=== PATIENT | female | born 1970 | race Caucasian/White ===

== ENCOUNTER 2018-01-16 11:24 | Emergency (ER) | payer MEDICAID, OTHER ==
[~2018-01-16] VITALS: Ht 165.1 cm; Wt 113.4 kg
--- NOTE | 2018-01-16 11:36 | ED Integumentary General ---
General Chief Complaint: Skin/Wound Problems Stated Complaint: POISON RAYA/OAK ON BOTH ARMS Source: patient Exam Limitations: no limitations History of Present Illness Date Seen by Provider: Jan 16, 2018 Time Seen by Provider: 11:45 Initial Comments Patient is a 47-year-old female who presents to the emergency room with complaints of a rash on her arms and legs bilaterally. She reports that on she was working in her yard clearing out some overgrown brush and thinks she got into some poison raya. She was seen at an urgent care in [facility] and reports she was given a shot of "cortisone" on 01/08/18. She states that it has dried up a little bit but is not going away. Timing/Duration: week Location: face, hands, extremities Possible Cause: exposure to allergen Modifying Factors: improves with antihistamine Associated Symptoms: rash; No sore throat, No swelling/mass/lumps Allergies and Home Medications Allergies Coded Allergies: codeine (Verified Allergy, Unknown, 01/16/18) Home Medications No Active Prescriptions or Reported Meds Patient Home Medication List Home Medication List Reviewed: Yes Constitutional: see HPI; No chills, No diaphoresis, No fever EENTM: see HPI; No ear discharge, No hearing loss Respiratory: see HPI; No dyspnea on exertion, No short of breath, No wheezing Cardiovascular: see HPI; No chest pain, No edema Gastrointestinal: see HPI; No abdominal pain, No constipation Genitourinary: see HPI; No decreased output, No discharge Musculoskeletal: see HPI; No back pain, No gout, No joint pain Skin: see HPI; No lesions, No lumps; pruritus, rash Psychiatric/Neurological: See HPI; Denies Anxiety, Denies Depressed Endocrine: See HPI; Denies Excessive Sweating, Denies Flushing Hematologic/Lymphatic: See HPI; Denies Anemia, Denies Blood Clots All Other Systems Reviewed Negative Unless Noted: Yes Past Pcvrqzu-Ynhbbp-Qtowmj Hx Past Med/Social Hx: Reviewed Nursing Past Med/Soc Hx Patient Social History Recent Foreign Travel: No Contact w/Someone Who Travel: No Family Medical History Reviewed Nursing Family Hx Physical Exam Vital Signs Vital Signs - First Documented 01/16/18 11:45 Temp 98.1 Pulse 77 Resp 18 B/P (MAP) 171/116 (134) Pulse Ox 100 Capillary Refill : General Appearance: WD/WN, no apparent distress HEENT: normal ENT inspection, TMs normal, pharynx normal Neck: non-tender, full range of motion, supple Cardiovascular: regular rate, rhythm, no edema, no gallop, no JVD, no murmur Respiratory: chest non-tender, lungs clear, normal breath sounds, no respiratory distress, no accessory muscle use Gastrointestinal: non tender, soft, no organomegaly Back: normal inspection, no CVA tenderness, no vertebral tenderness Extremities: normal range of motion, non-tender, normal inspection, no pedal edema, no calf tenderness Neurologic/Psychiatric: alert, normal mood/affect, oriented x 3 Skin: warm/dry, rash (the patient has a pruritic rash on her arms bilaterally legs bilaterally and her left ear and cheek. She has scratched it to the point of bleeding and some areas. The bleeding is controlled. Several scabbed areas.) Skin Problem Location: upper extremities, lower extremities Skin Problem Character: erythema, rash, urticarial Lymphatic: no adenopathy Progress/Results/Core Measures Results/Orders My Orders Orders - VIVIANA RODRIGUES Triamcinolone Acetonide Im (Kenalog-40) (01/16/18 11:45) Diphenhydramine Injection (Benadryl Inje (01/16/18 11:45) Medications Given in ED Vital Signs/I&O 01/16/18 01/16/18 11:45 13:02 Temp 98.1 Pulse 77 51 Resp 18 16 B/P (MAP) 171/116 (134) 169/89 Pulse Ox 100 98 Departure Impression Primary Impression: Contact dermatitis due to poison raya Disposition: 01 HOME, SELF-CARE Condition: Stable/Unchanged Departure-Patient Inst. Decision time for Depature: 11:35 Referrals: NO,LOCAL PHYSICIAN (PCP) Primary Care Physician [facility] Patient Instructions: Contact Dermatitis (DC) Add. Discharge Instructions: You may use topical antihistamines, such as Benadryl cream to aid with itching, you may also take Benadryl as directed by the bottle to help with itching. Follow with a doctor within 1 week for recheck. I have provided the number to [facility] call today to schedule an appointment and get established with them. Return back to the emergency room as needed for any other concerns. All discharge instructions reviewed with patient and/or family. Voiced understanding. CH[facility]: [phone] Scripts No Active Prescriptions or Reported Meds VIVIANA RODRIGUES Jan 16, 2018 11:36
[2018-01-16] MEDS ORDERED: diphenhydrAMINE 50 MG/ML INJ (BENADRYL) IM ONE (11:45)
[2018-01-16] MEDS ORDERED: TRIAMCINOLONE ACET (KENALOG-40) 40 MG/ML 1 ML VIAL IM ONE (11:45)
[2018-01-16 13:02] VITALS: BP 169/89
== END 2018-01-16 13:02 | disposition home or self-care (01) ==
LOC: ER 11:27
DX: L25.5 Unspecified contact dermatitis due to plants, except food (principal); Z88.5 Allergy status to narcotic agent
CPT/HCPCS: 96372; 99284

== ENCOUNTER → 2019-07-16 | Outpatient (CLI) | payer SELFPAY ==
[2019-07-16 17:17] LABS: BASOPHILS % (AUTO) 1 % (0-10); EOSINOPHILS # (AUTO) 0.4 10^3/uL (0.0-0.3); EOSINOPHILS % (AUTO) 6 % (0-10); HEMATOCRIT 41 % (35-52); HEMOGLOBIN 13.4 G/DL (11.5-16.0); LYMPHOCYTES # (AUTO) 1.2 X 10^3 (1.0-4.0); LYMPHOCYTES % (AUTO) 20 % (12-44); MEAN CORPUSCULAR HEMOGLOBIN 31 PG (25-34); MEAN CORPUSCULAR HGB CONC 33 G/DL (32-36); MEAN CORPUSCULAR VOLUME 93 FL (80-99); MEAN PLATELET VOLUME 10.9 FL (7.4-10.4); MONOCYTES # (AUTO) 0.4 X 10^3 (0.0-1.0); MONOCYTES % (AUTO) 7 % (0-12); NEUTROPHILS # (AUTO) 3.7 X 10^3 (1.8-7.8); NEUTROPHILS % (AUTO) 66 % (42-75); PLATELET COUNT 248 10^3/uL (130-400); RED CELL DISTRIBUTION WIDTH 13.4 % (10.0-14.5); WHITE BLOOD COUNT 5.7 10^3/uL (4.3-11.0)
[2019-07-16 17:32] LABS: ALANINE AMINOTRANSFERASE 14 U/L (0-55); ALBUMIN 4.2 GM/DL (3.2-4.5); ALKALINE PHOSPHATASE 63 U/L (40-136); BILIRUBIN,TOTAL 0.4 MG/DL (0.1-1.0); BUN/CREATININE RATIO 22; CALCIUM 9.3 MG/DL (8.5-10.1); CARBON DIOXIDE 25 MMOL/L (21-32); CHLORIDE 106 MMOL/L (98-107); CREATINE KINASE 125 U/L (29-168); CREATININE SERUM 0.69 MG/DL (0.60-1.30); GFR ESTIMATED > 60; GLUCOSE 100 MG/DL (70-105); POTASSIUM 3.9 MMOL/L (3.6-5.0); SODIUM 140 MMOL/L (135-145)
== END ==
LOC: LAB 16:51
DX: R07.89 Other chest pain (principal)
CPT/HCPCS: 36415; 80053; 82550; 83880; 84484; 85025

== ENCOUNTER → 2019-11-18 | Outpatient (CLI) | payer SELFPAY | LOC: CARD 13:05 | PROVIDERS: ATTEND Internal Medicine Cardiovascular Disease | DX: R07.89 Other chest pain (principal); I10 Essential (primary) hypertension; F41.9 Anxiety disorder, unspecified; E66.01 Morbid (severe) obesity due to excess calories | CPT/HCPCS: 93306 ==

== ENCOUNTER → 2019-11-24 | Outpatient (CLI) | payer SELFPAY ==
[~2019-11-24] VITALS: Ht 162 cm; Wt 135.0 kg
[~2019-11-24] MED LIST: CATHETER FLUSH 10 ML SYR IV PRN; REGADENOSON 0.4 MG/5 ML SYR (LEXISCAN) IV ONE
[2019-11-24 09:46] VITALS: BP 202/114
--- NOTE | 2019-11-24 19:14 | STRESS TEST ---
DATE OF SERVICE: 11/24/2019 LEXISCAN MYOVIEW STRESS TEST REPORT REFERRING PHYSICIAN: Dr. Erin Hammer. In summary, the patient was injected with 10.4 mCi of technetium-99 Myoview and the resting images were obtained. Then, the patient received 0.4 mg of Lexiscan followed by 30.0 mCi of technetium-99 Myoview. Throughout the test, there were no EKG changes. The resting and stress images were reviewed and compared in the short axis, horizontal long axis, and vertical long axis views. Review of the images showed reversible ischemia involving the whole anterior wall and anterolateral wall. SSS is 18, SDS 14. Transient ischemic dilatation with TID value 1.34. On the gated images, the left ventricle appeared to be normal size with normal contractility. Calculated ejection fraction 67%. CONCLUSION: 1. The patient tolerated Lexiscan well. 2. Reversible ischemia involving the whole anterior wall and anterolateral wall. 3. Transient ischemic dilatation with TID value 1.34. 4. Normal left ventricular size with normal contractility. Calculated ejection fraction 67%. Job ID: [id number] DocumentID: [id number] Dictated Date: 11/24/2019 16:02:08 Physician Relations Specialist Date: 11/24/2019 19:14:12 Dictated By: MAHSA HUNTER MD
== END ==
LOC: CARD 07:50
PROVIDERS: ATTEND Internal Medicine Cardiovascular Disease
DX: R07.89 Other chest pain (principal); E66.01 Morbid (severe) obesity due to excess calories; I10 Essential (primary) hypertension; F41.9 Anxiety disorder, unspecified
CPT/HCPCS: 78452; 93017

== ENCOUNTER 2019-12-01 07:44 | Day surgery (SDC) | payer SELFPAY ==
[2019-12-01] VITALS (9 sets, daily range): BP systolic 119–156; BP diastolic 66–93
[~2019-12-01] VITALS: Ht 162 cm; Wt 138.0 kg
[~2019-12-01 07:44] MED LIST changes: -CATHETER FLUSH 10 ML SYR IV PRN; +HEParin (CATH LAB) 2,000 ML IV ONE; +LIDOCAINE 1% INJ 20 ML 20 ML VIAL ONE; +NS IV 1000 ML 1,000 ML ONE; -REGADENOSON 0.4 MG/5 ML SYR (LEXISCAN) IV ONE
[2019-12-01] MEDS ORDERED: NS IV 1000 ML 1,000 ML IV SCH ×2 (07:49→12:11)
--- OUTSIDE RECORDS SUMMARY | 2019-12-01 07:49 | XMS REPORT | Continuity of Care Document ---
Author Organization Unknown Address Unknown Phone Unavailable Allergies Active Description Code Type Severity Reaction Onset Reported/Identified Relationship to Patient Clinical Status Yes CODEINE SULFATE S EVERE GI PROBLEMS - VOMITI Yes CODEINE SULFATE S EVERE SEVERE Yes codeine [id number] Drug Allergy Unknown N/A 01/16/2018 Yes No Known Drug Allergies [id number] Drug Allergy Unknown N/A 01/16/2018 Medications There is no data. Problems Date Dx Coded Attending Type Code Diagnosis Diagnosed By 04/09/2017 Sharon Tejada 296.20 MAJOR DEPRESSIVE DISORDER, SINGLE EPISODE, UNSPECIFIED DEGREE 04/09/2017 Sharon Tejada 300.09 OTHER ANXIETY STATES 04/09/2017 Sharon Tejada F32.9 MAJOR DEPRESSIVE DISORDER, SINGLE EPISODE, UNSPECIFIED 04/09/2017 Sharon Tejada F41.8 OTHER SPECIFIED ANXIETY DISORDERS 01/16/2018 BERNOT, VIVIANA Ot L25.5 UNSPECIFIED CONTACT DERMATITIS DUE TO PL 01/16/2018 BERNOT, VIVIANA Ot R21 RASH AND OTHER NONSPECIFIC SKIN ERUPTION 01/16/2018 BERNOT, VIVIANA Ot Z88.5 ALLERGY STATUS TO NARCOTIC AGENT STATUS 01/19/2018 BERNOT, VIVIANA Ot L25.5 UNSPECIFIED CONTACT DERMATITIS DUE TO PL 01/19/2018 BERNOT, VIVIANA Ot R21 RASH AND OTHER NONSPECIFIC SKIN ERUPTION 01/19/2018 BERNOT, VIVIANA Ot Z88.5 ALLERGY STATUS TO NARCOTIC AGENT STATUS 07/20/2019 OTHER, UNLISTED Ot R07.89 OTHER CHEST PAIN 07/20/2019 OTHER, UNLISTED Ot R07.89 OTHER CHEST PAIN 07/20/2019 OTHER, UNLISTED Ot R07.89 OTHER CHEST PAIN 07/20/2019 OTHER, UNLISTED Ot R07.89 OTHER CHEST PAIN 07/20/2019 OTHER, UNLISTED Ot R07.89 OTHER CHEST PAIN 11/19/2019 DALE JOHNSON, MAHSA Leonard Ot E66. 01 MORBID (SEVERE) OBESITY DUE TO EXCESS CA 11/19/2019 MAHSA HUNTER MD Ot F41. 9 ANXIETY DISORDER, UNSPECIFIED 11/19/2019 MAHSA HUNTER MD Ot I10 ESSENTIAL (PRIMARY) HYPERTENSION 11/19/2019 DALE JOHNSON DERICNACHO Leonard Ot R07. 89 OTHER CHEST PAIN 11/19/2019 MAHSA HUNTER MD Ot E66. 01 MORBID (SEVERE) OBESITY DUE TO EXCESS CA 11/19/2019 MAHSA HUNTER MD Ot F41. 9 ANXIETY DISORDER, UNSPECIFIED 11/19/2019 MAHSA HUNTER MD J Ot I10 ESSENTIAL (PRIMARY) HYPERTENSION 11/19/2019 MAHSA HUNTER MD Ot R07. 89 OTHER CHEST PAIN 11/25/2019 MAHSA HUNTER MD Ot E66. 01 MORBID (SEVERE) OBESITY DUE TO EXCESS CA 11/25/2019 MAHSA HUNTER MD Ot F41. 9 ANXIETY DISORDER, UNSPECIFIED 11/25/2019 MAHSA HUNTER MD Ot I10 ESSENTIAL (PRIMARY) HYPERTENSION 11/25/2019 MAHSA HUNTER MD Ot R07. 89 OTHER CHEST PAIN Procedures There is no data. Results Test Result Range CULTURE, URINE - 02/27/19 11:31 CULTURE, URINE, ROUTINE SEE NOTE NRG Complete blood count (CBC) with automate d white blood cell (WBC) differential - 07/16/19 17:03 Blood leukocytes automated count (number/volume) 5.7 10*3/uL 4.3-11.0 Blood erythrocytes automated count (number/volume) 4.40 10*6/uL 4.35-5.85 Venous blood hemoglobin measurement (mass/volume) 13.4 g/dL 11.5-16.0 Blood hematocrit (volume fraction) 41 % 35-52 Automated erythrocyte mean corpuscular volume 93 [ foz_us] 80-99 Automated erythrocyte mean corpuscular h emoglobin (mass per erythrocyte) 31 pg 25-34 Automated erythrocyte mean corpuscular h emoglobin concentration measurement (mass/volume) 33 g/dL 32-36 Automated erythrocyte distribution width ratio 13. 4 % 10.0- 14.5 Automated blood platelet count (count/volume) 248 10*3/uL 130-400 Automated blood platelet mean volume measurement 10.9 [foz_us] 7.4-10.4 Automated blood neutrophils/100 leukocytes 66 % 42-75 Automated blood lymphocytes/100 leukocytes 20 % 12-44 Blood monocytes/100 leukocytes 7 % 0-12 Automated blood eosinophils/100 leukocytes 6 % 0-10 Automated blood basophils/100 leukocytes 1 % 0-10 Blood neutrophils automated count (number/volume) 3.7 10*3 1.8-7.8 Blood lymphocytes automated count (number/volume) 1.2 10*3 1.0-4.0 Blood monocytes automated count (number/volume) 0. 4 10*3 0.0-1.0 Automated eosinophil count 0.4 10*3/uL 0 .0-0.3 Automated blood basophil count (count/volume) 0.0 10*3/uL 0.0-0.1 Comprehensive metabolic panel - 07/16/19 17:03 Serum or plasma sodium measurement (moles/volume) 140 mmol/L 135-145 Serum or plasma potassium measurement (moles/volume) 3.9 mmol/L 3.6-5.0 Serum or plasma chloride measurement (moles/volume) 106 mmol/L 98-107 Carbon dioxide 25 mmol/L 21-32 Serum or plasma anion gap determination (moles/volume) 9 mmol/L 5-14 Serum or plasma urea nitrogen measurement (mass/volume ) 15 mg/dL 7-18 Serum or plasma creatinine measurement (mass/volume) 0.69 mg/dL 0.60-1.30 Serum or plasma urea nitrogen/creatinine mass ratio 22 NRG Serum or plasma creatinine measurement w ith calculation of estimated glomerular filtration rate > NRG Serum or plasma glucose measurement (mass/volume) 100 mg/dL 70-105 Serum or plasma calcium measurement (mass/volume) 9.3 mg/dL 8.5-10.1 Serum or plasma total bilirubin measurement (mass/volu me) 0.4 mg/dL 0.1-1.0 Serum or plasma alkaline phosphatase luis surement (enzymatic activity/volume) 63 U/L 40-136 Serum or plasma aspartate aminotransfera se measurement (enzymatic activity/volume) 16 U/L 5-34 Serum or plasma alanine aminotransferase measurement (enzymatic activity/volume) 14 U/L 0-55 Serum or plasma protein measurement (mass/volume) 7.0 g/dL 6.4-8.2 Serum or plasma albumin measurement (mass/volume) 4.2 g/dL 3.2-4.5 CALCIUM CORRECTED 9.1 mg/dL 8.5-10.1 Serum or plasma creatine kinase measurem ent (enzymatic activity/volume) - 07/16/19 17:03 Serum or plasma creatine kinase measurem ent (enzymatic activity/volume) 125 U/L 29-168 Serum or plasma troponin i.cardiac measu rement (mass/volume) - 07/16/19 17:03 Serum or plasma troponin i.cardiac measurement (mass/v olume) < ng/mL <0.028 Serum or plasma lithium measurement (mol es/volume) - 07/16/19 17:03 BNP PT 24.3 pg/mL <100.0 TSH w/ FREE T4 - 07/27/19 16:09 TSH 3.88 mIU/L NRG T4, FREE 1.0 ng/dL 0.8-1.8 Encounters ACCT No. Visit Date/Time Discharge Status Pt. Type Provider Facility Loc./Unit Complaint [id number] 2019 12:40:00 2019 23:59:5 9 [facility] [place] [id number] 07/27/2019 15:20:00 Document Registration [id number] 02/27/2019 10:40:00 Document Registration [id number] 11/24/2019 07:50:00 23:59:59 CLS Outpatient MAHSA HUNTER MD [facility] CARD ANTERIOR CHEST WALL ABIOLA N [id number] 11/18/2019 13:05:00 23:59:59 CLS Outpatient MAHSA HUNTER MD [facility] CARD HTN [id number] 07/16/2019 16:51:00 020 23:59:59 CLS Outpatient OTHER, UNLISTED V ia [facility] LAB ROUTINE LAB [id number] 01/16/2018 11:27:00 13:02:00 DIS Emergency VIVIANA RODRIGUES [facility] ER POISON RAYA/OAK ON BOTH ARMS [id number] 12/01/2019 07:44:[address] Outpatient MAHSA HUNTER MD [facility] CATH ABN STRESS TEST [id number] 07/17/2017 13:08:00 07/17/2017 23:59: 00 DIS Outpatient CHRISTIE BARBOSA [id number] 04/09/2017 09:01:00 04/09/2017 11:32: 00 DIS Outpatient [facility]
--- OUTSIDE RECORDS SUMMARY | 2019-12-01 07:49 | XMS REPORT ---
Author Author Ana Luisa ELLINGTON Organization [facility] Address [address] [place] [address] Care Team Providers Care Rfid Engineer Name Role Phone ELZA ELLINGTON Unavailable PROBLEMS Type Condition ICD9-CM Code LNG88-DG Code Onset Dates Condition S tatus SNOMED Code Problem Essential (primary) hypertension I10 Active 04437442 Problem JAYSON (obstructive sleep apnea) G47.33 Active 19531824 Problem History of gestational diabetes Z86.32 Active 272300573 Problem Joint laxity of right knee M23.8X1 Act ge Problem Generalized anxiety disorder F41.1 A ctive 75092961 Problem Moderate persistent asthma with exacerbation J45.4 1 Active 935332224 Problem Major depressive disorder, single episode, unspecified F32.9 Active 94096441 Problem Mild intermittent asthma with acute exacerbation J 45.21 Active 978571860 Problem Mild intermittent asthma with acute exacerbation J 45.21 Active 506637476 Problem Major depressive disorder, recurrent episode, severe F33.2 Active 36094494 ALLERGIES No Information ENCOUNTERS Encounter Location Date Diagnosis [facility] [address] [id number] [place] [address] Aug, [facility] [address] [id number] [place] [address] Jul, [facility] [address] [facility] [id number] [address] [place] [phone] Jul, [facility] [address] [facility] [id number] [address] [place] [phone] Jul, [facility] [address] [facility] [id number] [address] [place] [address] Jul, Sensation of chest pressure R07.89 ; Moderate persistent asthma with exacerbation J45.41 and History of gestational diabetes Z86.32 [facility] [address] [facility] [id number] [address] [place] [phone] 08 Jun, 2019 Mild intermittent asthma wit h acute exacerbation J45.21 [place] [address] [address] Jun, Joint laxity of right knee M23.8X1 [place] [address] [address] May, [place] [address] [address] May, Joint laxity of right knee M23.8X1 [place] [address] [address] May, Joint laxity of right knee M23.8X1 ; [place] or depressive disorder, recurrent episode, severe F33.2 and Generalized anxiety disorder F41.1 [facility] [address] [facility] [id number] [address] [place] [address] Feb, Dysuria R30.0 ; Urinary trac t infection, site not specified N39.0 ; Hematuria, unspecified R31.9 ; Yeast infection B37.9 and Morbid obesity E66.01 [place] [address] [address] Feb, Generalized anxiety disorder F41.1 and M ild intermittent asthma with acute exacerbation J45.21 [place] [address] [address] Feb, Mild intermittent asthma with acute exac erbation J45.21 ; Generalized anxiety disorder F41.1 ; Essential (primary) hypertension I10 and Morbid obesity E66.01 [place] [address] [address] Sep, [place] [address] [address] Sep, Major depressive disorder, single episod e, unspecified F32.9 [place] [address] [address] Sep, Major depressive disorder, single episod e, unspecified F32.9 [place] [address] [address] Aug, History of gestational diabetes Z86.32 [place] [address] [place] [id number] [place] [address] Aug, Generalized anxiety disorder F41.1 ; His tory of gestational diabetes Z86.32 and Essential (primary) hypertension I10 [place] [address] [address] Jul, Generalized anxiety disorder F41.1 [place] [address] [address] Jul, JAYSON (obstructive sleep apnea) G47.33 ; E ssential (primary) hypertension I10 ; Encounter for immunization Z23 ; History of gestational diabetes Z86.32 and BMI 40.0-44.9, adult Z68.41 IMMUNIZATIONS No Known Immunizations SOCIAL HISTORY Never Assessed REASON FOR VISIT New Refill Request PLAN OF CARE VITAL SIGNS MEDICATIONS Medication Instructions Dosage Frequency Start Date End Date Duration S tatus Hydrochlorothiazide 25 MG Orally Once a day 1 tablet in the morning 24h Aug, 30 day(s) Active RESULTS No Results PROCEDURES No Known procedures INSTRUCTIONS MEDICATIONS ADMINISTERED No Known Medications MEDICAL (GENERAL) HISTORY Type Description Date Medical History hypertension Medical History gestational diabetes Medical History OSAS Medical History asthma Medical History no hx of seizures Surgical History tubal ligation 06/2015 Surgical History lipoma removal 1987 Surgical History lipoma removal 1988 Hospitalization History childbirth only
--- OUTSIDE RECORDS SUMMARY | 2019-12-01 07:49 | XMS REPORT ---
Author Author Ana Luisa HIGGINS Organization [facility] Address [address] [place] [address] Care Team Providers Care Director Insurance Name Role Phone MAITE HIGGINS Unavailable PROBLEMS Type Condition ICD9-CM Code SVB49-GM Code Onset Dates Condition S tatus SNOMED Code Problem Generalized anxiety disorder F41.1 A ctive 23234038 Problem Mild intermittent asthma with acute exacerbation J 45.21 Active 012028277 Problem Mild intermittent asthma with acute exacerbation J 45.21 Active 266106304 Problem Essential (primary) hypertension I10 Active 66157402 Problem JAYSON (obstructive sleep apnea) G47.33 Active 28338373 Problem History of gestational diabetes Z86.32 Active 274487890 Problem Major depressive disorder, single episode, unspecified F32.9 Active 74918574 ALLERGIES No Information ENCOUNTERS Encounter Location Date Diagnosis [facility] [address] [facility] [id number] [address] [place] [address] Mar, [facility] [address] [facility] [id number] [address] [place] [phone] 24 Feb, 2019 Dysuria R30.0 ; Urinary trac t infection, site not specified N39.0 ; Hematuria, unspecified R31.9 ; Yeast infection B37.9 and Morbid obesity E66.01 [facility] [address] [facility] [id number] [address] [place] [phone] 14 Feb, 2019 Generalized anxiety disorder F41.1 and Mild intermittent asthma with acute exacerbation J45.21 [facility] [address] [facility] [id number] [address] [place] [address] 14 Feb, 2019 Mild intermittent asthma wit h acute exacerbation J45.21 ; Generalized anxiety disorder F41.1 ; Essential (primary) hypertension I10 and Morbid obesity E66.01 [facility] [address] [facility] [id number] [address] [place] [address] Sep, [facility] [address] [facility] [id number] [address] [place] [address] Sep, Major depressive disorder, s hector episode, unspecified F32.9 [place] [address] [facility] [id number] [address] [place] [address] Sep, Major depressive disorder, s hector episode, unspecified F32.9 [place] [address] [place] [id number] [address] [place] [address] Aug, History of gestational diabe marcy Z86.32 [place] [address] [place] [id number] [address] [place] [address] 05 Aug, 2018 Generalized anxiety disorder F41.1 ; History of gestational diabetes Z86.32 and Essential (primary) hypertension I10 [place] [address] [place] [id number] [place] [address] Jul, Generalized anxiety disorder F41.1 [place] [address] [place] [id number] [address] [place] [address] Jul, JAYSON (obstructive sleep apnea ) G47.33 ; Essential (primary) hypertension I10 ; Encounter for immunization Z23 ; History of gestational diabetes Z86.32 and BMI 40.0-44.9, adult Z68.41 IMMUNIZATIONS No Known Immunizations SOCIAL HISTORY Never Assessed REASON FOR VISIT f/u PLAN OF CARE Activity Details Follow Up Next available Reason:depres abdulaziz VITAL SIGNS MEDICATIONS Unknown Medications RESULTS No Results PROCEDURES Procedure Date Ordered Result Body Site Psychotherapy, patient &/family, 30 minutes, established pat ient September 22, 2018 INSTRUCTIONS MEDICATIONS ADMINISTERED No Known Medications MEDICAL (GENERAL) HISTORY Type Description Date Medical History hypertension Medical History gestational diabetes Medical History OSAS Surgical History tubal ligation 06/2015 Surgical History lipoma removal 1987 Surgical History lipoma removal 1988 Hospitalization History childbirth only
[2019-12-01 08:21] LABS: BILIRUBIN,URINE NEGATIVE (NEGATIVE); CLARITY,URINE CLEAR; COLOR,URINE YELLOW; GLUCOSE, URINE (UA) NEGATIVE (NEGATIVE); KETONES,URINE NEGATIVE (NEGATIVE); LEUKOCYTE ESTERASE ,URINE NEGATIVE (NEGATIVE); NITRITE,URINE NEGATIVE (NEGATIVE); PH,URINE 6.5 (5-9); PROTEIN,URINE NEGATIVE (NEGATIVE)
[2019-12-01 08:21] LABS: HEMOGLOBIN 13.8 G/DL (11.5-16.0); MEAN PLATELET VOLUME 10.8 FL (7.4-10.4); RED CELL DISTRIBUTION WIDTH 13.4 % (10.0-14.5); WHITE BLOOD COUNT 5.6 10^3/uL (4.3-11.0)
[2019-12-01 08:31] LABS: BACTERIA,URINE FEW /HPF; WBC,URINE RARE /HPF
[2019-12-01] MEDS ORDERED: BUDE10.2 IH (08:31)
[2019-12-01] MEDS ORDERED: BACL10TA PO (08:31)
[2019-12-01] MEDS ORDERED: LISI1TAB26 PO (08:31)
[2019-12-01] MEDS ORDERED: RT-ALBUINH IH (08:31)
[2019-12-01] MEDS ORDERED: ASPI-586 PO (08:31)
[2019-12-01] MEDS ORDERED: MTP25TSR PO (08:31)
[2019-12-01 08:34] LABS: INR 0.9 (0.8-1.4); PROTHROMBIN TIME PATIENT 12.1 SEC (12.2-14.7)
--- NOTE | 2019-12-01 08:34 | Diagnostic Imaging Report ---
INDICATION: Pre-heart catheterization and chest pain. Time of exam 8:27 AM No prior studies are available for comparison. The heart size is normal. The pulmonary vascularity is unremarkable. The lungs are clear. No infiltrate, effusion or pneumothorax is detected. Impression: No acute cardiopulmonary process is detected. Dictated by: Dictated on workstation # [id number]
[2019-12-01 08:45] LABS: ALANINE AMINOTRANSFERASE 11 U/L (0-55); ALBUMIN 4.1 GM/DL (3.2-4.5); ALKALINE PHOSPHATASE 72 U/L (40-136); BILIRUBIN,TOTAL 0.5 MG/DL (0.1-1.0); BUN/CREATININE RATIO 22; CALCIUM 9.6 MG/DL (8.5-10.1); CARBON DIOXIDE 25 MMOL/L (21-32); CHLORIDE 105 MMOL/L (98-107); CHOLESTEROL 203 MG/DL (< 200); CREATININE SERUM 0.72 MG/DL (0.60-1.30); GFR ESTIMATED > 60; GLUCOSE 103 MG/DL (70-105); HDL CHOLESTEROL 54 MG/DL (40-60); SODIUM 140 MMOL/L (135-145); TOTAL PROTEIN 7.5 GM/DL (6.4-8.2); TRIGLYCERIDES 111 MG/DL (<150); VLDL CHOLESTEROL 22 MG/DL (5-40)
[2019-12-01] MEDS ORDERED: fentaNYL INJECTION 100 MCG/2 ML AMP ONE (11:30)
[2019-12-01] MEDS ORDERED: HEParin 1000 UNIT/ML (10ML VIAL) FOR BOLUS ONE (11:30)
[2019-12-01] MEDS ORDERED: NITRO DRIP 25000 MCG/D5W 250 ML IV ONE (11:30)
[2019-12-01] MEDS ORDERED: MIDAZOLAM 5 MG/5 ML (VERSED) VIAL ONE (11:30)
[2019-12-01] MEDS ORDERED: VERAPAMIL 5 MG/2 ML (CALAN) VIAL IV ONE (11:30)
--- NOTE | 2019-12-01 11:41 | Cardiac Procedure Note-CS/ASA ---
Pre-Procedure Note Pre-Op Procedure Note H&P Reviewed The H&P was reviewed, patient examined and no changes noted. Date H&P Reviewed: December 01, 2019 Time H&P Reviewed: 09:00 Conscious Sedation Pre-Proced Time 09:00 ASA Score 3 For ASA 3 and 4: Consider anesthesia and medical clearance. Also, for patients with a history of failed moderate sedation consider anesthesia. Airway Lungs Heart ASA score ASA 1: a normal healthy patient ASA 2: a patient with a mild systemic disease (mid diabetes, controlled hypertension, obesity x ASA 3: a patient with a severe systemic disease that limits activity (angina, COPD, prior Myocardial infarction) ASA 4: a patient with an incapacitating disease that is a constant threat to life (CHF, renal failure) ASA 5: a moribund patient not expected to survive 24 hrs. (ruptured aneurysm) ASA 6: a declared brain- patient whose organs are being harvested. For emergent operations, add the letter E after the classification Mallampati Classification Grade 3 Sedation Plan Analgesia, Amnesia, Plan communicated to team members, Discussed options with patient/fam, Discussed risks with patient/fam The patient is an appropriate candidate to undergo the planned procedure, sedation, and anesthesia. The patient immediately re-assessed prior to indication. MAHSA HUNTER MD December 01, 2019 11:41
--- NOTE | 2019-12-01 12:15 | Cardiac Cath Report ---
Cardiac Cath Report Physician (s)/Nursing Education Consultant (s) Physician MAHSA HUNTER MD Pre-Procedure Diagnosis Pre-Procedure Diagnosis: Coronary artery disease Post-Procedure Note Procedure Start Date: December 01, 2019 Name of Procedure: Left heart catheterization Left ventricular gram Findings/Procedure Note PROCEDURE NOTE: 49-year-old lady with strong family history of heart disease has been having chest pain, had an abnormal stress test with ischemia in the anterior wall is scheduled for cardiac catheterization possible PTCA. After explaining the procedure to the patient, all pros and cons were explained, all questions were answered. The patient signed the consent and then she was placed on the cardiac catheterization laboratory. Groin was prepped SL fashion local anesthesia was used. Sheath placed in the right radial artery, [place] c atheter was used to evaluate left ventricular cavity, angiogram was done then advanced to the coronary system and selective coronary angiogram was done At the end of the procedure the sheath was removed. Vascular band was used FINDINGS: Hemodynamics LV 144/19, end-diastolic pressure Aorta 123/83 mean of 103 ANATOMY: Left Main is free of obstructive disease Left Anterior Descending is free of obstructive disease Left Circumflex is free of obstructive disease Right Coronory Artery has slow flow, probably mild small vessel disease nonobstructive disease LV Gram is normal in size with normal contraction. Estimated ejection fraction 50 percent CONCLUSION: 1. Mild coronary artery disease nonobstructive disease 2. Normal left ventricular size and systolic function estimated ejection fraction 60 percent 3. Mildly elevated left ventricular end-diastolic pressure DISCUSSION AND RECOMMENDATION: chest pain is probably noncardiac, abnormal stress Test is due to extracardiac attenuation, achieving adequate blood pressure control and monitoring lipids is recommended Anesthesia Type: Conscious Sedation Estimated blood loss (mL): 5 ml Contrast Amount: 27 ml Total Radiation Dose: 824 mGy Post-Procedure Diagnosis Post-operative diagnosis: Chest pain Coronary artery disease Hypertension Hyperlipidemia MAHSA HUNTER MD December 01, 2019 12:15
--- NOTE | 2019-12-01 12:17 | Discharge Inst-Post CATH ---
Discharge Inst-CATH/EP Problems Reviewed?: Yes Post Cardiac Cath/EP D/C Inst Follow Up/Plan Appointment with Dr. Broderick's office in 4 weeks <b>CARDIAC CATH/EP PROCEDURE DISCHARGE INSTRUCTIONS</b> ACTIVITY * Go Home directly and rest. * Limit activity of the leg (or wrist if it was used) for 7 days including aerobics, swimming, jogging, bicycling, etc. * Restrict stair-climbing for 7 days if possible, if not, climb up with your non-cath leg, then bring together on the same step. * Avoid lifting, pushing, pulling or excessive movement of the affected extremity for 7 days. * Customary sexual activity may be resumed after 2 days-use caution not to use a position that strains or causes pain to the affected extremity. * No driving for 24 hours. * NO SMOKING. * Avoid straining for bowel movements for 7 days. * Gentle walking on level ground is allowed. * Returning to work will depend on the type of procedure and the results. Your doctor will discuss this with you. CALL YOUR DOCTOR FOR ANY OF THE FOLLOWING: *If bleeding from the puncture site occurs- Apply gentle pressure to site with clean cloth and call your doctor or EMS. * If a knot or lump forms under the skin, increases in size, or causes pain. * If bruising appears to be worsening or moving further down your leg instead of disappearing. * Temperature above 101 F. CARE OF YOUR GROIN INCISION; * Bruising or purple discoloration of the skin near the puncture site is common. * You may shower only, no bathtub bathing for 5 days. Be careful to avoid slipping as your leg may feel stiff. * If a closure device was used on your femoral artery, please see the attached guide regarding care of the device and your leg. * Leave dressing on FOR 24 hours. CARE OF YOUR WRIST INCISION; * Bruising or purple discoloration of the skin near the puncture site is common. * You may shower. * DO NOT submerge wrist. * Leave dressing on FOR 24 hours. MAHSA BRODERICK MD December 01, 2019 12:17
[2019-12-01] MEDS ORDERED: ATOR10TA PO (12:18)
== END 2019-12-01 15:00 | disposition home or self-care (01) ==
LOC: CATH 07:44
PROVIDERS: ATTEND Internal Medicine Cardiovascular Disease
DX: I25.10 Atherosclerotic heart disease of native coronary artery without angina pectoris (principal); I10 Essential (primary) hypertension; E78.5 Hyperlipidemia, unspecified; Z82.49 Family history of ischemic heart disease and other diseases of the circulatory system; J44.9 Chronic obstructive pulmonary disease, unspecified; G47.33 Obstructive sleep apnea (adult) (pediatric); Z79.899 Other long term (current) drug therapy; Z79.82 Long term (current) use of aspirin; F41.9 Anxiety disorder, unspecified; Z88.5 Allergy status to narcotic agent; Z87.891 Personal history of nicotine dependence
CPT/HCPCS: 36415; 71045; 80053; 80061; 81000; 85027; 85610; 85730; 87081; 93458

== ENCOUNTER 2020-09-05 21:37 | Emergency (ER) | payer SELFPAY ==
[~2020-09-05] VITALS: Ht 162.5 cm; Wt 146.5 kg
[~2020-09-05 21:37] MED LIST changes: +ASPI-586 PO; +ATOR10TA PO; +BACL10TA PO; +BUDE10.2 IH; -HEParin (CATH LAB) 2,000 ML IV ONE; -LIDOCAINE 1% INJ 20 ML 20 ML VIAL ONE; +LISI1TAB26 PO; +MTP25TSR PO; -NS IV 1000 ML 1,000 ML ONE; +RT-ALBUINH IH
[2020-09-05] MEDS ORDERED: KETOROLAC 60 MG/2 ML VIAL IM STA (22:00)
--- NOTE | 2020-09-05 23:03 | ED Lower Extremity ---
General Chief Complaint: Lower Extremity Stated Complaint: L KNEE PAIN Nursing Triage Note: TO ED VIA POV AND W/C TO FT 2 STATING "I WAS AT THE [employer] AND I WENT TO TURN AND MY LEFT KNEE WENT COMPLETELY BACKWARDS. MY MADE ME COME HERE BECAUSE I COULDN'T WALK IN THE HOUSE." Nursing Sepsis Screen: No Definite Risk Source: patient Exam Limitations: no limitations History of Present Illness Date Seen by Provider: Sep 05, 2020 Time Seen by Provider: 21:55 Initial Comments Here with left knee pain after twisting it while pumping gas. She states that she may have caught her foot on the curb and twisted her knee backwards. Unable to walk on it afterwards due to pain. She has had long-term problems with her knees and has had injections previously. Follows at [facility] but is gustabo ble to get into the Ortho clinic due to cost currently. Tonight she was unable to get into her house and her made her come in for evaluation. Denies fall afterwards and denies other injury. Onset: just prior to arrival (Approximately 30 to 45 minutes prior to arrival) Severity: moderate Pain/Injury Location: left knee Method of Injury: twisted Modifying Factors: Improves With Immobilization; Worse With Movement Allergies and Home Medications Allergies Coded Allergies: codeine (Verified Allergy, Unknown, 01/16/18) Home Medications Albuterol Sulfate 1 Puff Puff, 2 PUFF IH PRN, (Reported) 1 PUFF = 90 MCG Aspirin 81 Mg Tablet.dr, 81 MG PO DAILY, (Reported) Atorvastatin Calcium 10 Mg Tablet, 10 MG PO DAILY Prescribed by: MAHSA HUNTER on 12/01/19 1218 Baclofen 10 Mg Tablet, 10 MG PO UD, (Reported) Budesonide/Formoterol Fumarate 10.2 Gm Hfa.aer.ad, 2 PUFF IH BID, (Reported) Lisinopril/Hydrochlorothiazide 1 Each Tablet, 1 EACH PO DAILY, (Reported) Metoprolol Succinate 25 Mg Tab.er.24h, 25 MG PO DAILY, (Reported) Patient Home Medication List Home Medication List Reviewed: Yes Review of Systems Constitutional: see HPI; No chills, No fever Respiratory: no symptoms reported Cardiovascular: no symptoms reported Musculoskeletal: joint pain, joint swelling Skin: No change in color, No lesions Psychiatric/Neurological: Denies Numbness, Denies Tingling Past Jqxxkjn-Cinusk-Lobvsc Hx Past Med/Social Hx: Reviewed Nursing Past Med/Soc Hx Patient Social History Alcohol Use: Denies Use Type Used: Cigarettes 2nd Hand Smoke Exposure: No Recent Infectious Disease Expo: No Recent Hopitalizations: No Immunizations Up To Date Tetanus Booster (TDap): Less than 5yrs Past Medical History Surgeries: Yes Tubal Ligation Respiratory: Yes Asthma, Sleep Apnea Currently Using CPAP: No Cardiac: Yes Hypertension Neurological: No Genitourinary: No Gastrointestinal: No Musculoskeletal: Yes Arthritis Endocrine: Yes Hypothyroidsim HEENT: No Cancer: No Psychosocial: No Integumentary: Yes Recent Skin Changes Blood Disorders: No Family Medical History Reviewed Nursing Family Hx Physical Exam Vital Signs Vital Signs - First Documented 09/05/20 21:50 Temp 36.4 Pulse 78 Resp 16 B/P (MAP) 139/114 (122) O2 Delivery Room Air Capillary Refill : Less Than 3 Seconds Height, Weight, BMI Height: 5'5.00" Weight: 250lbs. oz. 113.384915tz; 55.00 BMI Method:Stated General Appearance: WD/WN, mild distress Cardiovascular: regular rate, rhythm, no murmur Respiratory: lungs clear, normal breath sounds Knees: left knee joint effusion, left knee soft tissue tenderness, left knee swelling, left knee other (Negative drawer and negative medial or lateral laxity on exam. Able to lift leg off bed and straight leg fashion. Pain with range of motion and states tight on flexion past 45 degrees. Distal pulses intact without sensation deficit) Neurologic/Psychiatric: alert, oriented x 3 Skin: normal color, warm/dry Progress/Results/Core Measures Results/Orders My Orders Orders - TAYE COX MD Knee, Left, 3 Views (09/05/20 22:00) Ketorolac Injection (Toradol Injection) (09/05/20 22:00) Vital Signs/I&O 09/05/20 21:50 Temp 36.4 Pulse 78 Resp 16 B/P (MAP) 139/114 (122) O2 Delivery Room Air Blood Pressure Mean: 122 Progress Progress Note : Progress Note Seen and evaluated. X-ray left knee ordered. Toradol 60 mg IM ordered. Monitor patient. 2300: No acute fracture but degeneration noted. We did discuss follow-up and she retold her concerns related to cost but will do what she can. Dyllan wrap and crutches ordered. Patient declined stronger pain medicine as she has to be awake for her daughter who just had tonsillectomy. She will continue ibuprofen and or Tylenol/acetaminophen at home as well as ice packs and current therapy. Discharged home with return precautions. Patient verbalized understanding of instructions and agreement with plan. Diagnostic Imaging Diagonstic Imaging: Xray Plain Films/CT/US/NM/MRI: knee Comments Degeneration without obvious fracture left knee Reviewed: Reviewed by Me Departure Impression Primary Impression: Internal derangement of left knee Disposition: HOME, SELF-CARE Condition: Stable Departure-Patient Inst. Decision time for Depature: 23:00 Referrals: NO,LOCAL PHYSICIAN (PCP) Primary Care Physician EMIL KOTHARI APRN (Family) Primary Care Physician Patient Instructions: Ligament Injuries in the Knee (DC), Knee Sprain (DC) Add. Discharge Instructions: All discharge instructions reviewed with patient and/or family. Voiced understanding. You may take ibuprofen 800 mg every 8 hours as needed for pain. You may also take Tylenol/acetaminophen 1000 mg every 8 hours as needed for pain. You may use ice packs over area of concern 20 minutes/h as needed to reduce swelling. Elevate leg to reduce swelling. Use Dyllan wrap as needed over the next several days. Use crutches as needed over the next several days. Follow-up with your doctor for recheck and further evaluation and seek evaluation in the orthopedic clinic. Return for worse pain, swelling, weakness, numbness or other concerns as needed. TAYE COX MD Sep 05, 2020 23:03
[2020-09-05 23:10] VITALS: BP 140/99
--- NOTE | 2020-09-06 06:25 | Diagnostic Imaging Report ---
INDICATION: Pain to left knee. Twisted knee. FINDINGS: 3 views. There is moderate narrowing of the medial compartment. Mild arthritic changes are present. There are no fractures or dislocations. No chondrocalcinosis or loose bodies. IMPRESSION: Moderate arthritic changes noted most severe in the medial compartment. No acute abnormalities. Dictated by: Dictated on workstation # [id number]
== END 2020-09-05 23:10 | disposition home or self-care (01) ==
LOC: EDUNIT# 21:37 → ER 21:39
DX: M23.92 Unspecified internal derangement of left knee (principal); I10 Essential (primary) hypertension; J45.909 Unspecified asthma, uncomplicated; Z88.5 Allergy status to narcotic agent; Z79.82 Long term (current) use of aspirin
CPT/HCPCS: 73562

== ENCOUNTER 2020-10-04 09:10 | Emergency (ER) | payer OTHER ==
[~2020-10-04] VITALS: Ht 165 cm; Wt 144.0 kg
--- NOTE | 2020-10-04 09:26 | ED Chest Pain ---
General Stated Complaint: CP Source: patient, EMS Exam Limitations: no limitations History of Present Illness Date Seen by Provider: Oct 04, 2020 Time Seen by Provider: 09:10 Initial Comments Patient presents ER by EMS from [facility] where she presented for chest pain. She is had this intermittent right-sided chest pain for the past 3 days today's episode started about 730, 1-1/2 hours prior to arrival. She says is a sharp stabbing fleeting pain and her right anterior chest under the breast. Reproducible by direct palpation but not deep inspiration. She has had a left- sided chest pain intermittent for the past couple years that she had checked out with a stress test and eventually a cardiac catheterization by Dr. Broderick. She was told that the heart catheterization was normal a year ago. Yesterday her was diagnosed with COVID-19. She is not having any shortness of air fever cough although she does have a history of asthma. She does not smoke but she has hypertension hyperlipidemia. She takes Victoza for weight loss and the past month and a half she has lost 5 pounds successfully. She denies diabetes. She has an history of anxiety and panic attacks but she states this is nothing like her panic attacks before. She is also noticing some feeling that her vision was different but she cannot describe it starting the same time as this most recent chest episode. She was given 324 mg of aspirin and a single dose of nitroglycerin en route by EMS. EMS reports normal EKG and that the nitroglycerin brought her down from a 6 out of 10 to a 2 out of 10 pain on the right side of her chest. EMS noted her blood pressure was 190/100 on arrival and went down to 170/110 after nitroglycerin. Allergies and Home Medications Allergies Coded Allergies: codeine (Verified Allergy, Unknown, 10/04/20) Home Medications Albuterol Sulfate 1 Puff Puff, 2 PUFF IH PRN, (Reported) 1 PUFF = 90 MCG Aspirin 81 Mg Tablet., 81 MG PO DAILY, (Reported) Atorvastatin Calcium 10 Mg Tablet, 10 MG PO DAILY Prescribed by: MAHSA BRODERICK on 12/01/19 1218 Baclofen 10 Mg Tablet, 10 MG PO UD, (Reported) Budesonide/Formoterol Fumarate 10.2 Gm Hfa.aer.ad, 2 PUFF IH BID, (Reported) Lisinopril/Hydrochlorothiazide 1 Each Tablet, 1 EACH PO DAILY, (Reported) Metoprolol Succinate 25 Mg Tab.er.24h, 25 MG PO DAILY, (Reported) Patient Home Medication List Home Medication List Reviewed: Yes Review of Systems Review of Systems Constitutional: No chills, No diaphoresis EENTM: Blurred Vision; No Double Vision Respiratory: Denies Cough, Denies Shortness of Air Cardiovascular: Denies See HPI, Denies Edema Genitourinary: Denies Burning, Denies Discharge Musculoskeletal: No back pain, No joint pain All Other Systems Reviewed Negative Unless Noted: Yes Past Mrhacfl-Swwkgx-Vxxwmy Hx Patient Social History Alcohol Use: Denies Use Smoking Status: Former Smoker Type Used: Cigarettes 2nd Hand Smoke Exposure: No Recent Hopitalizations: No Immunizations Up To Date Tetanus Booster (TDap): Less than 5yrs Past Medical History Surgeries: Yes Tubal Ligation Respiratory: Yes Asthma, Sleep Apnea Currently Using CPAP: No Cardiac: Yes Hypertension Neurological: No Genitourinary: No Gastrointestinal: No Musculoskeletal: Yes Arthritis Endocrine: Yes Hypothyroidsim HEENT: No Cancer: No Psychosocial: No Integumentary: Yes Recent Skin Changes Blood Disorders: No Physical Exam Vital Signs Vital Signs - First Documented Capillary Refill : Height, Weight, BMI Height: 5'5.00" Weight: 250lbs. oz. 113.872219yq; 55.00 BMI Method:Stated General Appearance: WD/WN, Anxious, Obese HEENT: PERRL/EOMI, Pharynx Normal, Moist Mucous Membranes Neck: Full Range of Motion, Normal Inspection Respiratory: No Chest Non Tender (Right anterior chest under the breast tenderness reproducible by direct palpation without ecchymosis deformity); Lungs Clear, Normal Breath Sounds, No Accessory Muscle Use, No Respiratory Distress Cardiovascular: Regular Rate, Rhythm, No Edema, Normal Peripheral Pulses Gastrointestinal: Normal Bowel Sounds, No Organomegaly (Negative for Crowe sign), Non Tender, Soft Extremity: Normal Capillary Refill, Normal Inspection, No Pedal Edema Neurologic/Psychiatric: Alert, Oriented x3 Skin: Normal Color, Warm/Dry Progress/Results/Core Measures Results/Orders Lab Results Laboratory Tests Test 10/04/20 09:15 10/04/20 09:30 Range/Units White Blood Count 5.4 4.3-11.0 10^3/uL Red Blood Count 4.38 3.80-5.11 10^6/uL Hemoglobin 13.6 11.5-16.0 g/dL Hematocrit 41 35-52 % Mean Corpuscular Volume 95 80-99 fL Mean Corpuscular Hemoglobin 31 25-34 pg Mean Corpuscular Hemoglobin Concent 33 32-36 g/dL Red Cell Distribution Width 12.7 10.0-14.5 % Platelet Count 294 130-400 10^3/uL Mean Platelet Volume 10.7 9.0-12.2 fL Immature Granulocyte % (Auto) 0 % Neutrophils (%) (Auto) 67 42-75 % Lymphocytes (%) (Auto) 20 12-44 % Monocytes (%) (Auto) 9 0-12 % Eosinophils (%) (Auto) 4 0-10 % Basophils (%) (Auto) 1 0-10 % Neutrophils # (Auto) 3.6 1.8-7.8 10^3/uL Lymphocytes # (Auto) 1.1 1.0-4.0 10^3/uL Monocytes # (Auto) 0.5 0.0-1.0 10^3/uL Eosinophils # (Auto) 0.2 0.0-0.3 10^3/uL Basophils # (Auto) 0.1 0.0-0.1 10^3/uL Immature Granulocyte # (Auto) 0.0 0.0-0.1 10^3/uL Prothrombin Time 13.1 12.2-14.7 SEC INR Comment 1.0 0.8-1.4 Activated Partial Thromboplast Time 27 24-35 SEC D-Dimer 0.62 H 0.00-0.49 UG/ML Sodium Level 138 135-145 MMOL/L Potassium Level 3.9 3.6-5.0 MMOL/L Chloride Level 104 98-107 MMOL/L Carbon Dioxide Level 24 21-32 MMOL/L Anion Gap 10 5-14 MMOL/L Blood Urea Nitrogen 12 7-18 MG/DL Creatinine 0.77 0.60-1.30 MG/DL Estimat Glomerular Filtration Rate > 60 BUN/Creatinine Ratio 16 Glucose Level 103 70-105 MG/DL Calcium Level 9.5 8.5-10.1 MG/DL Corrected Calcium 9.4 8.5-10.1 MG/DL Magnesium Level 1.9 1.6-2.4 MG/DL Total Bilirubin 0.7 0.1-1.0 MG/DL Aspartate Amino Transf (AST/SGOT) 14 5-34 U/L Alanine Aminotransferase (ALT/SGPT) 17 0-55 U/L Alkaline Phosphatase 54 40-136 U/L Myoglobin 29.1 10.0-92.0 NG/ML Troponin I < 0.028 <0.028 NG/ML Total Protein 7.0 6.4-8.2 GM/DL Albumin 4.1 3.2-4.5 GM/DL Lipase 25 8-78 U/L Coronavirus 2019 (AMINATA) Negative Negative Micro Results Microbiology 10/04/20 Influenza Types A,B Antigen (KILLIAN) - Final, Complete My Orders Orders - ALTON COATS Cbc With Automated Diff (10/04/20 09:18) Magnesium (10/04/20 09:18) Chest 1 View, Ap/Pa Only (10/04/20 09:18) Ekg Tracing (10/04/20 09:18) Comprehensive Metabolic Panel (10/04/20 09:18) Myoglobin Serum (10/04/20 09:18) Protime With Inr (10/04/20 09:18) Partial Thromboplastin Time (10/04/20 09:18) O2 (10/04/20 09:18) Monitor-Rhythm Ecg Trace Only (10/04/20 09:18) Lipid Panel (10/05/20 06:00) Ed Iv/Invasive Line Start (10/04/20 09:18) Lipase (10/04/20 09:18) Troponin I (10/04/20 09:18) Nitroglycerin 0.4 Mg Btl 25's (Nitrostat (10/04/20 09:30) Covid 19 Inhouse Test (10/04/20 09:18) Influenza A And B Antigens (10/04/20 09:18) Fibrin Degradation Products (10/04/20 09:15) Ketorolac Injection (Toradol Injection) (10/04/20 12:45) Iohexol Injection (Omnipaque 350 Mg/Ml 1 (10/04/20 12:45) Received Contrast (Hold Metformin- Contr (10/04/20 12:45) Sodium Chloride Flush (Catheter Flush Sy (10/04/20 12:45) Ns (Ivpb) (Sodium Chloride 0.9% Ivpb Bag (10/04/20 12:45) Ct Vidhya Chest/Noang Abd-Pelv W (10/04/20 12:29) Lactated Ringers (Lr 1000 Ml Iv Solution (10/04/20 12:45) Medications Given in ED Current Medications Medications Dose Ordered Sig/Areli Route Start Time Stop Time Status Last Admin Dose Admin Iohexol 100 ml ONCE ONCE IV 10/04/20 12:45 10/04/20 12:46 DC 10/04/20 13:33 100 ML Ketorolac Tromethamine 30 mg ONCE ONCE IVP 10/04/20 12:45 10/04/20 12:46 DC 10/04/20 12:50 30 MG Lactated Ringer's 1,000 ml @ 0 mls/hr Q0M ONCE IV 10/04/20 12:45 10/04/20 12:46 DC 10/04/20 12:49 0 MLS/HR Sodium Chloride 100 ml ONCE ONCE IV 10/04/20 12:45 10/04/20 12:46 DC 10/04/20 13:33 80 ML Vital Signs/I&O 10/04/20 10/04/20 09:20 09:20 Temp 35.8 Pulse 63 Resp 18 B/P (MAP) 183/104 (130) O2 Delivery Room Air Room Air Progress Progress Note #1: Time: 09:27 Progress Note If she redevelops chest pain we will give her some nitroglycerin. Were going to test her for flu and COVID-19. Chest x-ray. Labs including D-dimer. Lipase. Cardiac catheterization November 2019 showing mild coronary artery disease nonobst ructive with EF of 60% and mildly elevated left ventricular end-diastolic pressure. Progress Note #2: Time: 12:36 Progress Note Symptoms started at 3:00 and as of lab time 6 hours later her troponin is still not positive. Most likely source of her symptoms are from gallbladder however most dangerous that we cannot rule out would be a pulmonary embolism. Plan to go ahead and get a CT of her chest abdomen and pelvis to look at both of these organ systems and Toradol for her increasing pain in her right upper quadrant abdomen reproducible to direct palpation. She had NOCAD on a catheterization from 10 months ago. Symptoms seem to be associated with food. Progress Note #3: Time: 14:03 Progress Note Patient's pain is better after the Toradol. Initial ECG Impression Date: Oct 04, 2020 Initial ECG Impression Time: 09:13 Initial ECG Rate: 56 Initial ECG Rhythm: Normal Sinus Initial ECG Intervals: Normal Initial ECG Impression: Normal Initial ECG Comparisson: Unchanged Comment Normal sinus rhythm without ST elevation or depression. Left ventricular hypertrophy. Diagnostic Imaging Diagonstic Imaging: Xray Plain Films/CT/US/NM/MRI: chest Comments [facility], [place] NAME: MAYELIN MEZA [facility] REC#: [id number] PT STATUS: REG ER : 1970 PHYSICIAN: ALTON COATS MD ADMIT DATE: 10/04/20/ER Signed Date of Exam:10/04/20 CHEST 1 VIEW, AP/PA ONLY INDICATION: Chest pain COMPARISON: 12/01/2019 FINDINGS: Single view of the chest demonstrates clear lungs bilaterally. The heart is normal. There is no pneumothorax. The osseous structures are normal. IMPRESSION: Negative chest Dictated by: Dictated on workstation # [id number] Dict: 10/04/20 1019 Trans: 10/04/20 1042 [id number] Interpreted by: SHERRIE SANTOS Electronically signed by: SHERRIE SANTOS 10/04/20 1042 Reviewed: Reviewed by Me Diagonstic Imaging: CT Plain Films/CT/US/NM/MRI: chest, abdomen, pelvis Comments NAME: MAYELIN MEZA [facility] REC#: [id number] PT STATUS: REG ER : 1970 PHYSICIAN: ALTON COATS MD ADMIT DATE: 10/04/20/ER Draft Date of Exam:10/04/20 CT VIDHYA CHEST/NOANG ABD-PELV W INDICATION: Chest pain and nausea and abdominal pain. EXAMINATION: CTA chest, abdomen and pelvis TECHNIQUE: Thin axial sections through the chest, abdomen and pelvis are obtained following intravenous contrast bolus. Multiplanar MIP images were reconstructed and reviewed. All CT scans use one or more of the following dose optimizing techniques: automated exposure control, MA and/or KvP adjustment based on patient size and exam type or iterative reconstruction. COMPARISON: There is no previous CTA for comparison. CTA CHEST FINDINGS: Bolus timing is somewhat suboptimal with poor contrast bolus in the pulmonary arteries. Despite this, there are no definite filling defects in the visualized pulmonary arterial structures. The thoracic aorta shows no evidence of aneurysm or dissection. Great vessel origins are patent and without stenosis. There were no enlarged mediastinal or hilar nodes. There is no pleural or pericardial fluid. There are no enlarged axillary nodes or chest wall lesions. Lung parenchymal windows demonstrate no focal infiltrate or mass. CT ABDOMEN AND PELVIS FINDINGS: The liver and gallbladder are normal. The spleen, adrenals, and pancreas appear normal. There is a small hiatal hernia. Kidneys bilaterally appear unremarkable. There is no retroperitoneal mass or adenopathy. The abdominal aorta shows no evidence of aneurysm or dissection. Visualized bowel loops are unremarkable. There is a small fat-containing periumbilical hernia. There is no pelvic mass or lymphadenopathy. Uterus and adnexa appear normal. The appendix appears normal. 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 IMPRESSION: 1. CTA chest shows somewhat poor bolus timing but no definite pulmonary emboli or acute process in the chest. 2. CT abdomen and pelvis demonstrates no acute-appearing abnormality. There is a small hiatal hernia. There is no abdominal mass or overt inflammatory process. There is a small fat-containing periumbilical hernia. Incidental note made of spondylolysis of L4 with grade 1 spondylolisthesis of L4 and L5. Dictated on workstation # [id number] Dict: 10/04/20 1411 Trans: 10/04/20 1427 AS6 [id number] Interpreted by: LOUIE LEDESMA MD Electronically signed by: Reviewed: Reviewed by Me Departure Impression Primary Impression: Gastritis Qualified Codes: K29.00 - Acute gastritis without bleeding Additional Impression: Biliary colic symptom Disposition: HOME, SELF-CARE Condition: Improved Departure-Patient Inst. Decision time for Depature: 15:00 Referrals: NO,LOCAL PHYSICIAN (PCP) Primary Care Physician EMIL KOTHARI APRN (Family) Primary Care Physician DAVE RUSSELL DO Patient Instructions: Gastritis (DC) Add. Discharge Instructions: Drink plenty fluids. Zofran 1 tablet every 6 hours as necessary for nausea or vomiting. Pantoprazole 40 mg daily for the next 30 days. Carafate 30 minutes prior to meals and at bedtime for the next 2 weeks. Follow-up with Dr. Russell for further evaluation and possible EGD for your potential esophageal strictures and gastritis. He will also help you work-up your gallbladder to see if there is any functional difficulty. Tums, Rolaids, Maalox etc. for repeat symptoms of abdominal pain. Promptly return to the nearest ER if you are having intractable pain or nausea despite medications. Avoid greasy, spicy foods. Scripts Ondansetron (Ondansetron Odt) 4 Mg Tab.rapdis 4 MG PO Q6H PRN for NAUSEA/VOMITING, #8 TAB 0 Refills Prov: ALTON COATS 10/04/20 Sucralfate (Carafate) 1 Gm Tablet 1 GM PO QIDACHS for 14 Days, #56 TAB 0 Refills Prov: ALTON COATS 10/04/20 Pantoprazole Sodium (Pantoprazole Sodium) 40 Mg Tablet.dr 40 MG PO DAILY for 30 Days, #30 TAB 0 Refills Prov: ALTON COATS 10/04/20 Copy Copies To 1: DAVE RUSSELL DO ALTON COATS Oct 04, 2020 09:26
[2020-10-04 09:28] LABS: BASOPHILS # (AUTO) 0.1 10^3/uL (0.0-0.1); BASOPHILS % (AUTO) 1 % (0-10); EOSINOPHILS # (AUTO) 0.2 10^3/uL (0.0-0.3); EOSINOPHILS % (AUTO) 4 % (0-10); HEMATOCRIT 41 % (35-52); HEMOGLOBIN 13.6 g/dL (11.5-16.0); LYMPHOCYTES # (AUTO) 1.1 10^3/uL (1.0-4.0); LYMPHOCYTES % (AUTO) 20 % (12-44); MEAN CORPUSCULAR HEMOGLOBIN 31 pg (25-34); MEAN CORPUSCULAR HGB CONC 33 g/dL (32-36); MEAN CORPUSCULAR VOLUME 95 fL (80-99); MEAN PLATELET VOLUME 10.7 fL (9.0-12.2); MONOCYTES # (AUTO) 0.5 10^3/uL (0.0-1.0); MONOCYTES % (AUTO) 9 % (0-12); NEUTROPHILS # (AUTO) 3.6 10^3/uL (1.8-7.8); NEUTROPHILS % (AUTO) 67 % (42-75); PLATELET COUNT 294 10^3/uL (130-400); WHITE BLOOD COUNT 5.4 10^3/uL (4.3-11.0)
[2020-10-04] MEDS ORDERED: NITROGLYCERIN 0.4 MG SL TABS BTL 25'S SL PRN (09:30)
[2020-10-04 09:33] LABS: ALBUMIN 4.1 GM/DL (3.2-4.5); CHLORIDE 104 MMOL/L (98-107); POTASSIUM 3.9 MMOL/L (3.6-5.0); SODIUM 138 MMOL/L (135-145)
[2020-10-04 09:34] LABS: CALCIUM 9.5 MG/DL (8.5-10.1)
[2020-10-04 09:35] LABS: GLUCOSE 103 MG/DL (70-105)
[2020-10-04 09:37] LABS: BILIRUBIN,TOTAL 0.7 MG/DL (0.1-1.0); CARBON DIOXIDE 24 MMOL/L (21-32)
[2020-10-04 09:38] LABS: FIBRIN DEGRADATION PRODUCTS 0.62 UG/ML (0.00-0.49); PROTHROMBIN TIME PATIENT 13.1 SEC (12.2-14.7)
[2020-10-04 09:39] LABS: ALKALINE PHOSPHATASE 54 U/L (40-136); CREATININE SERUM 0.77 MG/DL (0.60-1.30); GFR ESTIMATED > 60
[2020-10-04 09:40] LABS: BUN/CREATININE RATIO 16
[2020-10-04 09:42] LABS: ALANINE AMINOTRANSFERASE 17 U/L (0-55); MAGNESIUM 1.9 MG/DL (1.6-2.4)
[2020-10-04 09:43] LABS: LIPASE 25 U/L (8-78)
--- NOTE | 2020-10-04 10:20 | Diagnostic Imaging Report ---
INDICATION: Chest pain COMPARISON: 12/01/2019 FINDINGS: Single view of the chest demonstrates clear lungs bilaterally. The heart is normal. There is no pneumothorax. The osseous structures are normal. IMPRESSION: Negative chest Dictated by: Dictated on workstation # [id number]
[2020-10-04] MEDS ORDERED: IOHEXOL 350 MG/ML 100 ML (OMNIPAQUE 350) VIAL IV ONE (12:45)
[2020-10-04] MEDS ORDERED: NS 100 ML (IVPB) BAG IV ONE (12:45)
[2020-10-04] MEDS ORDERED: LACTATED RINGERS 1,000 ML IV ONE (12:45)
[2020-10-04] MEDS ORDERED: KETOROLAC 30 MG/ML VIAL IVP ONE (12:45)
[2020-10-04] MEDS ORDERED: CATHETER FLUSH 10 ML SYR IV PRN (12:45)
[2020-10-04] MEDS ORDERED: HOLD METFORMIN - RECEIVED CONTRAST 20 ML VIAL IV SCH (12:45)
--- NOTE | 2020-10-04 14:27 | Diagnostic Imaging Report ---
INDICATION: Chest pain and nausea and abdominal pain. EXAMINATION: CTA chest, abdomen and pelvis TECHNIQUE: Thin axial sections through the chest, abdomen and pelvis are obtained following intravenous contrast bolus. Multiplanar MIP images were reconstructed and reviewed. All CT scans use one or more of the following dose optimizing techniques: automated exposure control, MA and/or KvP adjustment based on patient size and exam type or iterative reconstruction. COMPARISON: There is no previous CTA for comparison. CTA CHEST FINDINGS: Bolus timing is somewhat suboptimal with poor contrast bolus in the pulmonary arteries. Despite this, there are no definite filling defects in the visualized pulmonary arterial structures. The thoracic aorta shows no evidence of aneurysm or dissection. Great vessel origins are patent and without stenosis. There were no enlarged mediastinal or hilar nodes. There is no pleural or pericardial fluid. There are no enlarged axillary nodes or chest wall lesions. Lung parenchymal windows demonstrate no focal infiltrate or mass. CT ABDOMEN AND PELVIS FINDINGS: The liver and gallbladder are normal. The spleen, adrenals, and pancreas appear normal. There is a small hiatal hernia. Kidneys bilaterally appear unremarkable. There is no retroperitoneal mass or adenopathy. The abdominal aorta shows no evidence of aneurysm or dissection. Visualized bowel loops are unremarkable. There is a small fat-containing periumbilical hernia. There is no pelvic mass or lymphadenopathy. Uterus and adnexa appear normal. The appendix appears normal. 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 IMPRESSION: 1. CTA chest shows somewhat poor bolus timing but no definite pulmonary emboli or acute process in the chest. 2. CT abdomen and pelvis demonstrates no acute-appearing abnormality. There is a small hiatal hernia. There is no abdominal mass or overt inflammatory process. There is a small fat-containing periumbilical hernia. Incidental note made of spondylolysis of L4 with grade 1 spondylolisthesis of L4 and L5. Dictated by: Dictated on workstation # [id number]
[2020-10-04] MEDS ORDERED: SUCR1TAB36 PO (15:18)
[2020-10-04] MEDS ORDERED: ONDA4TAB11 PO (15:18)
[2020-10-04] MEDS ORDERED: PANT40TA52 PO (15:18)
[2020-10-04 15:36] VITALS: BP 168/89
== END 2020-10-04 15:35 | disposition home or self-care (01) ==
LOC: EDUNIT# 09:10 → ER 09:11
DX: K29.00 Acute gastritis without bleeding (principal); K44.9 Diaphragmatic hernia without obstruction or gangrene; K42.9 Umbilical hernia without obstruction or gangrene; I10 Essential (primary) hypertension; I25.10 Atherosclerotic heart disease of native coronary artery without angina pectoris; J45.909 Unspecified asthma, uncomplicated; Z87.891 Personal history of nicotine dependence; Z79.51 Long term (current) use of inhaled steroids; Z79.82 Long term (current) use of aspirin; Z88.5 Allergy status to narcotic agent; Z20.822 Contact with and (suspected) exposure to COVID-19; Z95.9 Presence of cardiac and vascular implant and graft, unspecified
CPT/HCPCS: 71045; 71275; 74177; 80053; 83690; 83735; 83874; 84484; 85025; 85379; 85610; 85730; 87804; 93041; U0002; 36415; 87635; 93005

== ENCOUNTER 2020-10-16 05:30 | Outpatient (RCR) | payer OTHER ==
[~2020-10-16] VITALS: Ht 165.1 cm; Wt 145.7 kg
[~2020-10-16 05:30] MED LIST changes: +BUPR200T34 PO; +LEVO75TA6 PO; +LIRA0.6P SQ; +ONDA4TAB11 PO; +PANT40TA52 PO; +SUCR1TAB36 PO
== END 2020-10-16 13:30 | disposition home or self-care (01) ==
LOC: PREOP 05:30
PROVIDERS: ATTEND Surgery
DX: Z01.812 Encounter for preprocedural laboratory examination (principal); Z12.11 Encounter for screening for malignant neoplasm of colon; K21.9 Gastro-esophageal reflux disease without esophagitis; Z20.822 Contact with and (suspected) exposure to COVID-19
CPT/HCPCS: 87635

== ENCOUNTER 2020-10-18 10:44 | Day surgery (SDC) | payer OTHER ==
[~2020-10-18] VITALS: Ht 165 cm; Wt 145.7 kg
[2020-10-18] MEDS ORDERED: LACTATED RINGERS 1,000 ML IV ONE (10:47)
[2020-10-18] MEDS ORDERED: LACTATED RINGERS 1,000 ML IV STA (10:55)
[2020-10-18] MEDS ORDERED: LIDOCAINE JELLY 2% 6 ML SYRINGE MM PRN (11:00)
[2020-10-18] MEDS ORDERED: HURRICAINE EXT TUBE (BENZOCAINE) XX PRN (11:00)
[2020-10-18] MEDS ORDERED: LACTATED RINGERS 1,000 ML IV PRN (11:00)
[2020-10-18 11:16] VITALS: BP 157/94
[2020-10-18] MEDS ORDERED: MIDAZOLAM 2 MG/2 ML (VERSED) VIAL ONE (12:14)
[2020-10-18] MEDS ORDERED: PROPOFOL INJECTION 50 ML IV ONE ×2 (12:14→12:48)
--- NOTE | 2020-10-18 12:31 | Conscious Sedation/ASA ---
Conscious Sedation Pre-Proced Time 12:00 ASA Score 2 For ASA 3 and 4: Consider anesthesia and medical clearance. Also, for patients with a history of failed moderate sedation consider anesthesia. Airway Lungs Heart ASA score ASA 1: a normal healthy patient ASA 2: a patient with a mild systemic disease (mid diabetes, controlled hypertension, obesity ASA 3: a patient with a severe systemic disease that limits activity (angina, COPD, prior Myocardial infarction) ASA 4: a patient with an incapacitating disease that is a constant threat to life (CHF, renal failure) ASA 5: a moribund patient not expected to survive 24 hrs. (ruptured aneurysm) ASA 6: a declared brain- patient whose organs are being harvested. For emergent operations, add the letter E after the classification Mallampati Classification Grade 2 Sedation Plan Analgesia, Amnesia, Plan communicated to team members, Discussed options with patient/fam, Discussed risks with patient/fam The patient is an appropriate candidate to undergo the planned procedure, sedation, and anesthesia. The patient immediately re-assessed prior to indication. KAT CORRAL MD Oct 18, 2020 12:31
--- NOTE | 2020-10-18 12:32 | Progress Note-Pre Operative ---
Pre-Operative Progress Note H&P Reviewed The H&P was reviewed, patient examined and no changes noted. Date Seen by Provider: Oct 18, 2020 Time Seen by Provider: 12:00 Date H&P Reviewed: Oct 18, 2020 Time H&P Reviewed: 12:00 Pre-Operative Diagnosis: GERD, dysphagia, screening o KAT CORRAL MD Oct 18, 2020 12:32
[2020-10-18] MEDS ORDERED: PANT40TA2 PO (12:33)
--- NOTE | 2020-10-18 12:33 | Discharge Inst-Surgical ---
D/C Lap Instructions-KIDO New, Converted, or Re-Newed RX: RX on Chart Follow Up Activity as tolerated High Fiber Diet 25g or more per day Avoid Alcohol, Caffeine, Spicy [place] and Acid foods. Drink 64 fluid oz or more of fluids per day. Symptoms to Report: Fever over 101 degree F, Nausea/Vomiting If any problems/questions: Contact your physician or go to Emergency Room KAT CORRAL MD Oct 18, 2020 12:33
[2020-10-18] MEDS ORDERED: HURRICAINE EXT TUBE (BENZOCAINE) ONE (12:44)
[2020-10-18] MEDS ORDERED: LIDOCAINE JELLY 2% 6 ML SYRINGE ONE (12:44)
[2020-10-18] MEDS ORDERED: morphine INJ 10 MG/ML 1ML (SYR OR VIAL) IVP PRN ×2 (12:45)
[2020-10-18] MEDS ORDERED: ONDANSETRON 4 MG/2 ML (SDV) Z0FRAN IVP PRN (12:45)
[2020-10-18] MEDS ORDERED: ACETAMINOPHEN 325 MG TABLET PO PRN (12:45)
[2020-10-18 13:20] VITALS: BP 119/62
[2020-10-18 13:25] VITALS: BP 119/64
[2020-10-18 13:30] VITALS: BP 116/58
--- NOTE | 2020-10-18 13:32 | Progress Note-Post Operative ---
Post-Operative Progess Note Surgeon (s)/Pastry Mixer (s) Surgeon KAT CORRAL MD Pastry Mixer: none Pre-Operative Diagnosis GERD, dysphagia, screening colo Post-Operative Diagnosis reflux esophagitis(stage 2), mild distal esophageal stricture, small-moderate HH(2.5cm), moderate gastritis. mild chronic stage 2 ext and int hemorrhoids. Procedure & Operative Findings Date of Procedure 10/18/20 Procedure Performed/Findings EGD with bx with balloon dilatation. Colonoscopy Anesthesia Type mac Estimated Blood Loss Estimated blood loss (mL): minimal Specimens/Packing Specimens Removed ge jxn, antrum KAT CORRAL MD Oct 18, 2020 13:32
[2020-10-18 13:40] VITALS: BP 116/58
--- NOTE | 2020-10-18 13:48 | Anesthesia-General Post-Op ---
MAC Patient Condition Mental Status/LOC: Same as Preop Cardiovascular: Satisfactory Nausea/Vomiting: Absent Respiratory: Satisfactory Pain: Controlled Complications: Absent Post Op Complications Complications None Follow Up Care/Instructions Patient Instructions None needed. Anesthesiology Discharge Order Discharge Order Patient is doing well, no complaints, stable vital signs, no apparent adverse anesthesia problems. No complications reported per nursing. JOHN OSBORNE CRNA Oct 18, 2020 13:48
[2020-10-18 13:55] VITALS: BP_SYST 116; BP_SYST 122; BP_DIAS 58; BP_DIAS 63
--- NOTE | 2020-10-18 21:45 | OPERATIVE REPORT ---
DATE OF SERVICE: 10/18/2020 ATTENDING PRIMARY NUTRITION PARTNER: Pearl Katz. PREOPERATIVE DIAGNOSES: Gastroesophageal reflux disease, dysphagia, screening colonoscopy. POSTOPERATIVE DIAGNOSES: Reflux esophagitis stage II with a mild distal esophageal stricture, small to moderate size hiatal hernia approximately 2.5 cm in size, moderate gastritis, chronic stage II external and internal hemorrhoids. PROCEDURES: EGD with biopsy and balloon dilatation. Colonoscopy. SURGEON: Kat Corral MD. ANESTHESIA: Monitored anesthesia care. ESTIMATED BLOOD LOSS: Minimal. FINDINGS: Reflux esophagitis stage II with a mild distal esophageal stricture, small to moderate size hiatal hernia approximately 2.5 cm in size, moderate gastritis, chronic stage II external and internal hemorrhoids. DISPOSITION: The patient tolerated the procedure well. INDICATIONS: The patient is a 49-year-old female referred over to us for an EGD as well as a screening colonoscopy. She has had epigastric burning sensation and chest pain for some time. She also has had undergone cardiac workup, which has been unremarkable. She did have a CT scan on her last Emergency Department visit, which did show a small hiatal hernia. She also has had developed issues with dysphagia and states that she has some difficulty swallowing with epigastric pressure sensation after food bolus. She is also in need of a screening colonoscopy. DESCRIPTION OF PROCEDURE: The patient was brought to the endoscopy suite, laid in the left lateral decubitus position. After adequate IV pain and sedative medications and monitored anesthesia care, the mouthpiece was applied. The endoscope was placed in the mouth, visualizing the pharynx and hypopharyngeal region. Vocal cords, epiglottis and vallecula identified and appeared to be normal. The endoscope was then gently intubated into the esophageal opening and esophagus insufflated. The endoscope was then advanced to the first, second and third portion of esophagus at the level of GE junction, and reflux esophagitis stage II identified. There was also a mild distal esophageal stricture identified. A biopsy was taken of the GE junction with forceps with visualization of good hemostasis. The endoscope was then advanced in the stomach and endoscope retroflexed, visualizing a small to moderate size hiatal hernia approximately 2.5 cm in size. There was also a moderate gastritis more focused towards the stomach antrum; however, no formal ulcerations. A biopsy was taken of the antrum with forceps with visualization of good hemostasis. The endoscope was then advanced to the pylorus and the first and second portion of the duodenum, which appeared normal with no distal obstructions. We then proceeded with 2 then 4, then 6 atmospheres of pressure with moderate resistance or 20 mm in luminal diameter and left this in place for approximately 120 seconds. The balloon was desufflated and removed with visualization of good hemostasis as well as no mucosal tears. The endoscope was then slowly withdrawn while taking a second look and suctioning of residual air with no additional findings. We then proceeded with a digital rectal examination, which revealed chronic stage II external and internal hemorrhoids, not actively edematous nor inflamed and no bleeding. Normal sphincter tone was felt and there were no palpable masses. The endoscope was then intubated and anus and rectum gently insufflated. The endoscope was then advanced through the valves of Waters of the rectum with no polyps or any neoplasms identified. Through the sigmoid colon, no diverticulosis identified. The endoscope was then advanced to the remainder of the descending, transverse and ascending colon to the cecum. These segments were normal. There were no polyps or any neoplasms identified throughout the colon or rectum. The endoscope was then slowly withdrawn while taking a second look and suctioning of residual air with no additional findings. The patient tolerated the procedure well. We will recommend the necessary lifestyle and diet accommodation including small and more frequent meals, avoidance of eating at night as well as head elevation while lying supine. We will also start her on a pantoprazole 40 mg daily. She does have a small to moderate size hiatal hernia; however, due to her body habitus, this would be a contraindication to do a hiatal hernia repair due to the unacceptable recurrence rates. We will also recommend continued medical management for colonic health, which would encompass a high fiber diet with at least 25 grams of fiber daily as well as significant amounts of water to promote soft stools on a daily basis. If she is asymptomatic, she does not need another colonoscopy for another 10 years. Job ID: [id number] DocumentID: [id number] Dictated Date: 10/18/2020 13:28:20 Luncheonette Operator Date: 10/18/2020 21:45:15 Dictated By: KAT CORRAL MD MTDD
== END 2020-10-18 14:00 | disposition home or self-care (01) ==
LOC: ENDO 10:44
PROVIDERS: ATTEND Surgery
DX: Z12.11 Encounter for screening for malignant neoplasm of colon (principal); K21.00 Gastro-esophageal reflux disease with esophagitis, without bleeding; K22.2 Esophageal obstruction; K29.70 Gastritis, unspecified, without bleeding; K44.9 Diaphragmatic hernia without obstruction or gangrene; K64.4 Residual hemorrhoidal skin tags; K64.1 Second degree hemorrhoids; I10 Essential (primary) hypertension; E78.5 Hyperlipidemia, unspecified; J45.909 Unspecified asthma, uncomplicated; E66.9 Obesity, unspecified; E78.00 Pure hypercholesterolemia, unspecified; E03.9 Hypothyroidism, unspecified; F17.210 Nicotine dependence, cigarettes, uncomplicated; F32.9 Major depressive disorder, single episode, unspecified; F41.9 Anxiety disorder, unspecified; Z20.822 Contact with and (suspected) exposure to COVID-19; Z88.5 Allergy status to narcotic agent; Z79.899 Other long term (current) drug therapy; Z98.51 Tubal ligation status; Z79.890 Hormone replacement therapy; Z79.82 Long term (current) use of aspirin; Z80.8 Family history of malignant neoplasm of other organs or systems; Z80.0 Family history of malignant neoplasm of digestive organs; Z83.3 Family history of diabetes mellitus

== ENCOUNTER 2021-01-26 10:55 | Outpatient (CLI) | payer OTHER ==
[~2021-01-26] VITALS: Ht 165.1 cm; Wt 136.4 kg
[~2021-01-26 10:55] MED LIST changes: +PANT40TA2 PO
[2021-01-26] MEDS ORDERED: CASIRIVIMAB/IMDEVIMAB 1,200 MG in NS (IVPB) 250 ML IV ONE (11:00)
[2021-01-26] MEDS ORDERED: EPINEPHrine INJECTION 1 MG/ML AMP IM PRN (11:00)
[2021-01-26] MEDS ORDERED: diphenhydrAMINE 50 MG/ML INJ (BENADRYL) IV PRN (11:00)
[2021-01-26 11:50] VITALS: BP 131/95
[2021-01-26 12:50] VITALS: BP 121/83
== END 2021-01-26 13:00 ==
LOC: INFUSION 10:55
PROVIDERS: ATTEND Nurse Practitioner Family
DX: Z23 Encounter for immunization (principal); U07.1 COVID-19

== ENCOUNTER 2021-08-17 21:02 | Emergency (ER) | payer OTHER ==
[~2021-08-17] VITALS: Ht 165 cm; Wt 144.0 kg
[~2021-08-17 21:02] MED LIST changes: -LISI1TAB26 PO; +LISI1TAB48 PO
[2021-08-17 21:11] VITALS: BP 195/112
--- NOTE | 2021-08-17 21:28 | ED Integumentary General ---
General Stated Complaint: BACK PAIN, GENITAL RASH Source: patient Exam Limitations: no limitations (KEYSHA ALDRICH APRN) History of Present Illness Date Seen by Provider: Aug 17, 2021 Time Seen by Provider: 21:23 Initial Comments To ER with concern of a genital rash. She is had some low back pain, suprapubic pressure for about 2 days. She has had some vaginal redness and itching for 2 days as well. No fever no chills no bowel changes no dysuria. She is not diabetic. She has a history of psoriasis as a kid. She has been clear for several years until she got Covid at which point the psoriasis recurred a few months ago. She has been on methotrexate once a week for the past few weeks but is off of it currently for the sake of getting on the Covid vaccines. Her second vaccine is scheduled next week. She will restart her methotrexate the week after that. Since being off of methotrexate for a few weeks she has had an intensifying of her psoriatic lesions. She is concerned that the vaginal itching and redness is caused by psoriasis. Timing/Duration: constant, getting worse Severity: moderate Possible Cause: no cause identified Associated Symptoms: denies symptoms (KEYSHA ALDRICH APRN) Allergies and Home Medications Allergies Coded Allergies: codeine (Verified Allergy, Unknown, 10/04/20) Patient Home Medication List Home Medication List Reviewed: Yes (KEYSHA ALDRICH APRN) Albuterol Sulfate (Proair Hfa) 1 Puff Puff, 2 PUFF IH PRN, (Reported) Entered as Reported by: OSCAR ESPINO on 12/01/19830 Aspirin (Aspir 81) 81 Mg Tablet.dr, 81 MG PO DAILY, (Reported) Entered as Reported by: OSCAR ESPINO on 12/01/19830 Atorvastatin Calcium (Lipitor) 10 Mg Tablet, 10 MG PO DAILY Prescribed by: MAHSA HUNTER on 12/01/19 121 Budesonide/Formoterol Fumarate (Symbicort 160-4.5 Mcg Inhaler) 10.2 Gm Hfa.aer.ad, 2 PUFF IH BID, (Reported) Entered as Reported by: OSCAR ESPINO on 12/01/19830 Bupropion HCl (Bupropion HCl ER) 200 Mg Tablet.er, 150 MG PO 150, (Reported) Entered as Reported by: ANGIE CUEVAS on 10/12/20 1328 Fluconazole (Diflucan) 150 Mg Tablet, 150 MG PO DAILY Prescribed by: KEYSHA ALDRICH on 08/17/210 Levothyroxine Sodium (Levothyroxine Sodium) 75 Mcg Tablet, 75 MCG PO DAILY, (Reported) Entered as Reported by: ANGIE CUEVAS on 10/12/20 1328 Liraglutide (Victoza 2-Subhash) 0.6 Mg/0.1 Ml Pen.injctr, 18 MG SQ, (Reported) Entered as Reported by: ANGIE CUEVAS on 10/12/20 1328 Lisinopril/Hydrochlorothiazide (Lisinopril-Hctz 20-25 mg Tab) 1 Each Tablet, 1 EACH PO DAILY, (Reported) Entered as Reported by: OSCAR ESPINO on 12/01/19 0831 Pantoprazole Sodium (Pantoprazole Sodium) 40 Mg Tablet.dr, 40 MG PO DAILY Prescribed by: ALTON COATS on 10/04/20 1518 Pantoprazole Sodium (Protonix) 40 Mg Tablet.dr, 40 MG PO DAILY Prescribed by: KAT CORRAL on 10/18/20 1233 Sucralfate (Carafate) 1 Gm Tablet, 1 GM PO QIDACHS Prescribed by: ALTON COATS on 10/04/20 1518 Review of Systems Review of Systems Constitutional: see HPI EENTM: see HPI Respiratory: no symptoms reported Cardiovascular: no symptoms reported Genitourinary: see HPI Musculoskeletal: see HPI, back pain Skin: no symptoms reported Psychiatric/Neurological: No Symptoms Reported Endocrine: No Symptoms Reported (KEYSHA ALDRICH APRN) Past Lwkbwjl-Jbfsau-Xrhysc Hx Immunizations Up To Date Tetanus Booster (TDap): Less than 5yrs (KEYSHA ALDRICH APRN) Seasonal Allergies Seasonal Allergies: Yes (KEYSHA ALDRICH APRN) Past Medical History Tubal Ligation Respiratory: Yes Asthma Currently Using CPAP: No Cardiac: Yes High Cholesterol, Hypertension 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 Genitourinary: No Gastrointestinal: No Musculoskeletal: No Arthritis Endocrine: No Hypothyroidsim HEENT: No Cancer: No Psychosocial: No Anxiety Integumentary: Yes Recent Skin Changes Blood Disorders: No (KEYSHA ALDRICH APRN) Physical Exam Vital Signs Vital Signs - First Documented 08/17/21 21:11 Temp 35.9 Pulse 80 Resp 18 B/P (MAP) 195/112 (139) Pulse Ox 98 O2 Delivery Room Air (JESSICA GLEASON MD) Vital Signs Capillary Refill : (KEYSHA ALDRICH APRN) General Appearance: WD/WN, no apparent distress, obese Neck: non-tender, full range of motion Respiratory: normal breath sounds, no respiratory distress, no accessory muscle use Gastrointestinal: normal bowel sounds, non tender, soft Neurologic/Psychiatric: alert, normal mood/affect, oriented x 3 Skin: normal color, warm/dry Skin Problem Location: other (With bradycardia and Cyn RN at the bedside of the vagina was examined. There was some erythema and maceration at the labia minora. Culture was collected.) (KEYSHA ALDRICH APRN) Progress/Results/Core Measures Results/Orders Lab Results Laboratory Tests Test 08/17/21 21:14 08/17/21 21:18 Range/Units Urine Color YELLOW Urine Clarity CLEAR Urine pH 5.5 5-9 Urine Specific [place] 1.025 H 1.016-1.022 Urine Protein NEGATIVE NEGATIVE Urine Glucose (UA) NEGATIVE NEGATIVE Urine Ketones NEGATIVE NEGATIVE Urine Nitrite NEGATIVE NEGATIVE Urine Bilirubin NEGATIVE NEGATIVE Urine Urobilinogen 0.2 < = 1.0 MG/DL Urine Leukocyte Esterase NEGATIVE NEGATIVE Urine RBC (Auto) TRACE-I H NEGATIVE Urine RBC RARE /HPF Urine WBC RARE /HPF Urine Crystals PRESENT H /LPF Urine Amorphous Sediment FEW SHAHEEN URATES H /LPF Urine Bacteria TRACE /HPF Urine Casts NONE /LPF Urine Mucus SMALL H /LPF Urine Culture Indicated NO (JESSICA GLEASON MD) Medications Given in ED Current Medications Medications Dose Ordered Sig/Areli Route Start Time Stop Time Status Last Admin Dose Admin Fluconazole 150 mg ONCE ONCE PO 08/17/21 21:30 08/17/21 21:32 DC 08/17/21 21:24 150 MG (JESSICA GLEASON MD) Vital Signs/I&O 08/17/21 21:11 Temp 35.9 Pulse 80 Resp 18 B/P (MAP) 195/112 (139) Pulse Ox 98 O2 Delivery Room Air (JESSICA GLEASON MD) Departure Impression Primary Impression: Vulvovaginal candidiasis Disposition: 01 HOME, SELF-CARE Condition: Stable Departure-Patient Inst. Decision time for Depature: 21:29 (KEYSHA ALDRICH APRN) Referrals: ELZA ELLINGTON MD (PCP/Family) Primary Care Physician Patient Instructions: Vulvovaginal Yeast Infection Add. Discharge Instructions: 1. Medication as directed. Follow-up with primary care next week for further evaluation. Return to ER for any worsening. Scripts Fluconazole (Diflucan) 150 Mg Tablet 150 MG PO DAILY, #4 TAB Prov: KEYSHA ALDRICH APRN 08/17/21 ATTENDING PHYSICIAN NOTE: I was physically present as attending physician in the emergency department during the care of this patient, but I was not directly involved in the decision making or delivery of care for this patient. (JESSICA GLEASON MD) KEYSHA ALDRICH APRN Aug 17, 2021 21:28 JESSICA GLEASON MD Aug 18, 2021 03:52
[2021-08-17] MEDS ORDERED: FLUCONAZOLE 150 MG TABLET (ED ONLY) PO ONE (21:30)
[2021-08-17] MEDS ORDERED: FLUC150T PO (21:30)
[2021-08-17 21:31] LABS: BILIRUBIN,URINE NEGATIVE (NEGATIVE); CLARITY,URINE CLEAR; COLOR,URINE YELLOW; GLUCOSE, URINE (UA) NEGATIVE (NEGATIVE); KETONES,URINE NEGATIVE (NEGATIVE); LEUKOCYTE ESTERASE ,URINE NEGATIVE (NEGATIVE); NITRITE,URINE NEGATIVE (NEGATIVE); PH,URINE 5.5 (5-9); PROTEIN,URINE NEGATIVE (NEGATIVE)
[2021-08-17 21:47] LABS: AMORPHOUS SEDIMENT,UR FEW AMOR URATES /LPF; BACTERIA,URINE TRACE /HPF; RBC,URINE RARE /HPF; WBC,URINE RARE /HPF
== END 2021-08-17 21:53 | disposition home or self-care (01) ==
LOC: EDUNIT# 21:02 → ER 21:07
DX: B37.3 Candidiasis of vulva and vagina (principal); I10 Essential (primary) hypertension; E78.00 Pure hypercholesterolemia, unspecified; J45.909 Unspecified asthma, uncomplicated; Z79.51 Long term (current) use of inhaled steroids; Z79.899 Other long term (current) drug therapy
CPT/HCPCS: 36415; 81000; 87070; 87077; 87205; 87210; 87591; 99284

== ENCOUNTER → 2022-04-29 | Outpatient (CLI) | payer OTHER ==
[~2022-04-29] MED LIST changes: +BARIUM for suspension 96% w/w (Vanilla Silq Medium Density) PO ONE; +BARIUM for suspension 98% w/w (Vanilla Silq High Density) PO ONE; +FLUC150T PO
--- NOTE | 2022-04-29 10:23 | Diagnostic Imaging Report ---
INDICATION: Hiatal hernia. Patient ingested effervescent crystals as well as thin and thick barium and imaging of esophagus was performed at multiple obliquities. Total of 40 seconds of fluoroscopic time was utilized. Preliminary radiograph of the chest is unremarkable. The esophagus has a smooth contour. No mass or stricture is identified. There is a small sliding-type hiatal hernia. No gastroesophageal reflux was demonstrated. Images of the stomach are unremarkable. IMPRESSION: Small sliding-type hiatal hernia. The study is otherwise unremarkable. Dictated by: Dictated on workstation # [id number]
== END ==
LOC: RAD 09:45
PROVIDERS: ATTEND Surgery
DX: K44.9 Diaphragmatic hernia without obstruction or gangrene (principal)
CPT/HCPCS: 74220

== ENCOUNTER 2022-05-15 05:44 | Outpatient (CLI) | payer OTHER ==
[~2022-05-15] VITALS: Ht 165.1 cm; Wt 127.7 kg
[~2022-05-15 05:44] MED LIST changes: +ALBU8.5H6 IH; -BARIUM for suspension 96% w/w (Vanilla Silq Medium Density) PO ONE; -BARIUM for suspension 98% w/w (Vanilla Silq High Density) PO ONE; -RT-ALBUINH IH
[2022-05-15] MEDS ORDERED: SECU150P2 SQ (10:16)
[2022-05-15] MEDS ORDERED: LISI10TA25 PO (10:16)
[2022-05-15] MEDS ORDERED: OMEG100032 PO (10:16)
== END 2022-05-15 10:22 | disposition home or self-care (01) ==
LOC: PREOP 05:44
PROVIDERS: ATTEND Surgery
DX: Z01.818 Encounter for other preprocedural examination (principal)

== ENCOUNTER 2022-05-23 11:23 | Day surgery (SDC) | payer OTHER ==
[2022-05-23] VITALS (7 sets, daily range): BP systolic 149–167; BP diastolic 72–114
[~2022-05-23] VITALS: Ht 165 cm; Wt 127.7 kg
[~2022-05-23 11:23] MED LIST changes: +LISI10TA25 PO; +OMEG100032 PO; +SECU150P2 SQ
[2022-05-23] MEDS ORDERED: LACTATED RINGERS 1,000 ML IV STA (11:26)
[2022-05-23] MEDS ORDERED: HURRICAINE EXT TUBE (BENZOCAINE) XX PRN (11:30)
--- NOTE | 2022-05-23 11:41 | Progress Note-Pre Operative ---
Pre-Operative Progress Note Date of Available H&P: May 14, 2022 Date H&P Reviewed: May 23, 2022 Time H&P Reviewed: 11:38 History & Physical: H&P Reviewed, Patient Examed, No changes noted Pre-Operative Diagnosis: chronic GERD, emesis DAVE RUSSELL DO May 23, 2022 11:41
[2022-05-23] MEDS ORDERED: proPOfol 200 MG/20 ML (DIPRIVAN) VIAL IV ONE (12:05)
[2022-05-23] MEDS ORDERED: MIDAZOLAM 2 MG/2 ML (VERSED) VIAL ONE (12:15)
--- NOTE | 2022-05-23 12:23 | Progress Note-Post Operative ---
Post-Operative Progess Note Surgeon (s)/Regional Vice President Life Sales (s) Surgeon DAVE RUSSELL DO Regional Vice President Life Sales: none Pre-Operative Diagnosis chronic GERD, emesis Post-Operative Diagnosis Gastritis Moderate hiatal hernia Procedure & Operative Findings Date of Procedure 05/23/22 Procedure Performed/Findings EGD with bx PROCEDURE NOTE: After informed consent was obtained, the patient was brought to the endoscopy suite, placed in bed in left lateral decubitus position. She was administered IV sedation by the BRIM FLEXER who then monitored vitals the entire time, heart rate, blood pressure and pulse ox and the scope was inserted down the mouth through the esophagus into the stomach. On the way down, noted some mild esophagitis, took a picture, pushed into the stomach and noted some mild gastritis. Pushed past the antrum into the duodenum; duodenum looked good. Pulled back and did a biopsy of the antrum, then retroflexed the scope, saw a moderate size hiatal hernia; small 1-2 cm opening, but good amount of stomach above the diaphragm. Took a picture of this and then pulled the scope into the GE junction, took another picture of the hiatal hernia and then did a biopsy of the GE junction. Pushed the scope back into the stomach and suctioned all the air out of the stomach. At this point pulled the scope up the esophagus and out of the mouth. The patient tolerated the procedure, and she recovered in endoscopy suite. Anesthesia Type IV sedation by BRIM FLEXER Estimated Blood Loss Estimated blood loss (mL): scant Specimens/Packing Specimens Removed antral bx GE jxn bx DAVE RUSSELL DO May 23, 2022 12:23
--- NOTE | 2022-05-23 12:24 | Endoscopy Discharge Instruct ---
Endo Procedure/Findings Findings 1.: Gastritis 2.: Hiatal Hernia Discharge Instructions - Activity: You might feel a little sleepy until tomorrow. This is due to the medicine you received to relax you. Until tomorrow, you should: NOT drive a car, operate machinery or power tools. NOT drink any alcoholic beverages. NOT make any important decisions or sign importortant papers. Do not return to work until tomorrow, unless otherwise instructed. Resume previous activities tomorrow. Diet: Start by taking liquids. If you tolerate liquids, advance to solid food. 1.: EGD in 3 years Notify Physician - If you experience excessive bleeding, unusual abdominal pain, fever, or chest pain, contact your doctor immediately. DAVE RUSSELL DO May 23, 2022 12:24
--- NOTE | 2022-05-23 12:47 | Anesthesia-General Post-Op ---
MAC Patient Condition Mental Status/LOC: Same as Preop Cardiovascular: Satisfactory Nausea/Vomiting: Absent Respiratory: Satisfactory Pain: Controlled Complications: Absent Post Op Complications Complications None Follow Up Care/Instructions Patient Instructions None needed. Anesthesiology Discharge Order Discharge Order Patient is doing well, no complaints, stable vital signs, no apparent adverse anesthesia problems. No complications reported per nursing. GREGG GONSALES CRNA May 23, 2022 12:47
== END 2022-05-23 13:40 | disposition home or self-care (01) ==
LOC: ENDO 11:23
PROVIDERS: ATTEND Surgery
DX: K29.70 Gastritis, unspecified, without bleeding (principal); K44.9 Diaphragmatic hernia without obstruction or gangrene; K31.89 Other diseases of stomach and duodenum; K21.00 Gastro-esophageal reflux disease with esophagitis, without bleeding; E66.01 Morbid (severe) obesity due to excess calories; Z68.42 Body mass index [BMI] 45.0-49.9, adult; Z87.891 Personal history of nicotine dependence
CPT/HCPCS: 84703; 88305; 88312

== ENCOUNTER 2022-06-26 05:31 | Outpatient (CLI) | payer OTHER ==
[~2022-06-26] VITALS: Ht 165.1 cm; Wt 125.0 kg
== END 2022-06-26 15:54 | disposition home or self-care (01) ==
LOC: PREOP 05:31
PROVIDERS: ATTEND Surgery
DX: Z01.818 Encounter for other preprocedural examination (principal)

== ENCOUNTER 2022-07-03 08:05 | Day surgery (SDC) | payer OTHER ==
[2022-07-03] VITALS (11 sets, daily range): BP systolic 131–173; BP diastolic 68–92
[~2022-07-03] VITALS: Ht 165.1 cm; Wt 137.3 kg
[2022-07-03] MEDS ORDERED: ceFAZolin INJECTION 2,000 MG in NS (IVPB) 50 ML IV ONE (08:15)
[2022-07-03] MEDS ORDERED: LIDOCAINE/EPI 1%-1:100,000 (XYLOCAINE) 30ML ONE (08:19)
[2022-07-03] MEDS: LACTATED RINGERS 1,000 ML IV PRN ×2 (08:29→10:00)
[2022-07-03] MEDS ORDERED: proPOfol 200 MG/20 ML (DIPRIVAN) VIAL IV ONE (09:00)
[2022-07-03] MEDS ORDERED: LIDOCAINE PF 2% 5 ML (XYLOCAINE) VIAL ONE (09:00)
[2022-07-03] MEDS ORDERED: fentaNYL INJ 100 MCG/2 ML AMP ONE (09:00)
[2022-07-03] MEDS ORDERED: ROCURONIUM 10 MG/ML 5 ML SYRINGE IV ONE (09:00)
[2022-07-03] MEDS ORDERED: MIDAZOLAM 2 MG/2 ML (VERSED) VIAL ONE (09:01)
[2022-07-03] MEDS ORDERED: LIDOCAINE/EPI 1%-1:100,000 (XYLOCAINE) 30ML INJ ONE (09:48)
[2022-07-03] MEDS ORDERED: PHENYLEPHRINE 100 MCG/ML 10 ML (ANESTHESIA) SYR ONE (10:23)
[2022-07-03] MEDS ORDERED: SEVOFLURANE (ULTANE) 15 ML INHAL SOLN ONE (11:09)
[2022-07-03] MEDS ORDERED: HYDROcodone/APAP 7.5MG-325 MG/15 ML (LORTAB) UDC PO PRN (11:15)
[2022-07-03] MEDS ORDERED: ONDANSETRON 4 MG/2 ML (SDV) Z0FRAN IVP PRN ×2 (11:15→11:45)
--- NOTE | 2022-07-03 11:27 | Progress Note-Post Operative ---
Post-Operative Progess Note Surgeon (s)/Reservoir Engineer (s) Surgeon DAVE RUSSELL DO Reservoir Engineer: Keisha Pre-Operative Diagnosis N/V, GERD, HIATAL HERNIA Post-Operative Diagnosis Same Procedure & Operative Findings Date of Procedure 07/03/22 Procedure Performed/Findings PROCEDURE: 1) Laparoscopic Hiatal hernia Repair - robotic 2) Anti-reflux wrap - Lipscomb 180 degree anterior wrap INDICATIONS: The patient is a 51 year old female who had an EGD performed, which showed a large hiatal hernia. Also seen on radiology exams. She was having moderated to severe chest pain from this, as well as GERD and elected to get this repaired. FINDINGS: The patient had a hiatal hernia, moderate size with definitely weak diaphragm and right and left rhett. PROCEDURE NOTE: After informed consent was obtained, the patient was brought to the operating room, placed on the table in the supine position. She was sterilely prepped and draped in normal fashion. Local lidocaine was used to make an incision just above the umbilicus, made an incision with #11 blade, carried down through the skin i nto subcutaneous tissue, then deepened down thru subcutaneous tissue with Bovie electrocautery down to the fascia. Fascia was incised with Bovie electrocautery, and then bluntly entered the abdomen, placed an 0 Vicryl figure of eight and then placed the 12 mm Kii port and blew up the balloon. Created a pneumoperitoneum and then placed 3 more robotic ports, one just lateral on the right side and two about 10 cm away from the supraumbilical on the patient's left side, 10 cm from the first port we put in, then another 10 cm past that. All of these were done about 20 cm below the costal margin. At this point, the patient was then placed in severe reverse Trendelenburg about 18 degrees to be able to drop everything up out of the chest, could see a little bit of weakness of the crura and a hiatal hernia. At this point, the robot was docked and instruments placed. Fenestrated bipolar was placed in the far left, then camera in the second and the third port coming from left to right was the scissors and then far right was a tip-up robotic instrument. I then place a stitch to hold the liver up out of the way; used a 12 inch non-absorbable V=lock; on pertioneal wall, at the diaphragm and then brought over to the right side of pt and through the peritoneal wall again. I was then able to use the tip-up to grasp at the esophageal fat pad and pull caudal caudad and medial, pulled this down, then started dissecting down. The gastrohepatic ligament or Pars Flaccida was opened with the scissors, able to get into this area and then started dissecting superiorly and inferiorly to get down to the right rhett, able to identify the hepatic vagus branch as well as the vasculature and stay away from this. Started dissecting once we were able to get down and get all the way through to the rhett and fully exposed the rhett, then able to get up into the mediastinum along the esophagus, able to carefully stay away from the posterior esophagus and posterior vagus as well as then started dissecting anteriorly above this to stay away from the anterior vagus. Then, we went to the left side to the left rhett, switching the tip ups to grasp the fundus of the stomach coming across the angle of HIS to release this and then started dissecting out the left rhett. Able to start to visualize the left rhett, switched back on the tip-up grasper to get under the esophagus, make sure we came all the way down to see both sides of the left and right rhett at the base, got the tip-up grasper under the esophagus, staying away from the anterior and posterior vagus and we were able to when we relaxed the stomach, saw that there was no tension or angulation. The esophagus did not get pulled into the mediastinum and we got a good 3-4 cm of esophagus into the abdominal cavity. Once we were sure that we had freed this up, sac dissection was initiated by incising the sac just below the anterior crura, divided a plane posterior to the pericardium, taking care to avoid denuding the crura and the peritoneal lining as well as staying away from the pericardium, helping to pull this down with gentle dissection on the sac. Blunt dissection laterally on either side of the esophagus. There were some diaphanous adhesions that were easily mobilized with blunt dissection as well as some small vessels taken care of with the fenestrated bipolar. Once we were able to get around the esophagus and felt that we had good mobilization of it into the abdominal cavity and we then started reapproximating the crura, used a 2-0 Prolene V-Loc suture, suturing from the base of the rhett and going up to just under the esophagus, taking bites with about a centimeter distance between them, running up and then back down; this closed nicely and then cut this off. Then elected to do a 180 degree Lipscomb (anterior) wrap, able to again get the tip-up underneath to hold this up and grasped the top of the fundus, had already come across the angle of His. We were not pulling on the spleen. I was able to get a good portion of the stomach up and threw one suture at the 2 o'clock position on the esophagus and through the Left rhett. Next, I went further out and brought more stomach across and tied at the 10 o'clock position on the esophagus and through the right rhett. Grabbed a little lower on the stomach and took a bite and then a bite on just the rhett at about 8 o'clock. All of this was done with Ethibond suture. This looked really nice good wrap. We did not have a bougie but did not look like we had encroached upon anything. There was only scant bleeding. We had seen a mass on the liver and elected to take a biopsy with biopsy forceps. Sent to pathology in formalin. Closure looked good and at this point then removed the grasper underneath the liver and pulled this out, placed the patient supine, removed all ports under direct visualization, allowed pneumoperitoneum to escape. Closed the right paramedian incision, closing the fascia with 0 Vicryl adeori-lc-dysun suture. Copiously irrigated all incisions, then closed the incision, closing the skin with a subcuticular 4-0 undyed Monocryl. Area was cleaned and dried, dressings placed. The patient tolerated the procedure. Sponge, instrument and needle count correct at the end of the case. Dr. Valdes assisted on this case helping to make incisions, close incisions, identify anatomy and pass instruments and suture. Anesthesia Type GET Estimated Blood Loss Estimated blood loss (mL): scant Specimens/Packing Specimens Removed none DAVE RUSSELL DO Jul 03, 2022 11:27
--- NOTE | 2022-07-03 11:28 | Progress Note-Pre Operative ---
Pre-Operative Progress Note Date of Available H&P: Jun 04, 2022 Date H&P Reviewed: Jul 03, 2022 Time H&P Reviewed: 08:56 History & Physical: H&P Reviewed, Patient Examed, No changes noted Pre-Operative Diagnosis: Hiatal hernia, GERD DAVE RUSSELL DO Jul 03, 2022 11:28
--- NOTE | 2022-07-03 11:42 | Anesthesia-General Post-Op ---
General Patient Condition Mental Status/LOC: Same as Preop Cardiovascular: Satisfactory Nausea/Vomiting: Absent Respiratory: Satisfactory Pain: Controlled Complications: Absent Post Op Complications Complications None Follow Up Care/Instructions Patient Instructions None needed. Anesthesia/Patient Condition Patient Condition Patient is doing well, no complaints, stable vital signs, no apparent adverse anesthesia problems. No complications reported per nursing. JAIME CRESPO CRNA Jul 03, 2022 11:42
[2022-07-03] MEDS ORDERED: fentaNYL INJ 100 MCG/2 ML AMP IVP ONE (11:45)
[2022-07-03] MEDS ORDERED: MEPERIDINE (DEMEROL) INJ 50 MG/ML IVP ONE (11:45)
[2022-07-03] MEDS ORDERED: HYDROmorphone 2 MG/ML VIAL (DILAUDID) IV ONE (11:45)
[2022-07-03] MEDS ORDERED: morphine INJ 10 MG/ML 1ML (SYR OR VIAL) IVP ONE (11:45)
[2022-07-03] MEDS ORDERED: PROMETHAZINE INJ 25 MG/ML (PHENERGAN) AMP IVP ONE (11:45)
[2022-07-03] MEDS ORDERED: NS IV 1000 ML 1,000 ML IV SCH (13:00)
[2022-07-03] MEDS ORDERED: morphine INJ 4 MG/ML 1 ML (VIAL/SYRINGE) IVP PRN (13:00)
[2022-07-03] MEDS ORDERED: morphine INJ 4 MG/ML 1 ML (VIAL/SYRINGE) ONE (13:27)
[2022-07-03] MEDS: LACTATED RINGERS 1,000 ML IV SCH ×2 (13:30→21:54)
[2022-07-03] MEDS ORDERED: RT-ALBUTEROL SULF 2.5 MG/3 ML PRE-MIX VIAL INH PRN (14:00)
[2022-07-03] MEDS: ENOXAPARIN 60 MG/0.6 ML (LOVENOX) SYR SC SCH (14:39)
--- NOTE | 2022-07-03 15:30 | Physical Therapy Evaluation ---
PT Evaluation-General Medical Diagnosis Admission Date Medical Diagnosis: Laparoscopic Hiatal hernia Repair Onset Date: Jul 03, 2022 Therapy Diagnosis Therapy Diagnosis: impaired mobility Height/Weight Height (Feet): 5 Height (Inches): 5.00 Weight (Pounds): 250 Precautions Precautions/Isolations: Fall Prevention, Standard Precautions Referral Physician: Piero Reason for Referral: Evaluation/Treatment Social History Current Living Status: Spouse Entry Into Home: Stairs With Railing PT Steps Into Home: 3 Prior Prior Level of Function SCALE: Activities may be completed with or without assistive devices. 7-Qvoaootslu-vpkbfgj completes the activity by him/herself with no assistance from a helper. 5-Set-up or Clean-up Assistance-helper sets up or cleans up; patient completes activity. [place] assists only prior to or following the activity. 4-Supervision or Touching Assistance-helper provides verbal cues and/or touching/steadying and/or contact guard assistance as patient completes activity. Assistance may be provided throughout the activity or intermittently. 3-Partial/Moderate Assistance-helper does LESS THAN HALF the effort. [place] lifts, holds or supports trunk or limbs, but provides less than half the effort. 2-Substantial/Maximal Assistance-helper does MORE THAN HALF the effort. [place] lifts or holds trunk or limbs and provides more than half the effort. 4-Nmbrslswf-oabhsg does ALL the effort. Patient does none of the effort to complete the activity. Or, the assistance of 2 or more helpers is required for the patient to complete the activity. If activity was not attempted, code reason: 7-Patient Refused. 9-Not Applicable-not attempted and the patient did not perform the activity before the current illness, exacerbation or injury. 10-Not Attempted due to Environmental Limitations-(lack of equipment, weather restraints, etc.). 88-Not Attempted due to Medical Conditions or Safety Concerns. Bed Mobility: 6 Transfers (B,C,W/C): 6 Gait: 6 Stairs: 6 Indoor Mobility (Ambulation): Independent Stairs: Independent PT Evaluation-Current Subjective Patient in bed pre tx, agrees to PT, has 1/10 pain in her abdomen and 3/10 pain in shoulders. Pt/Family Goals to be independent at home Objective Patient Orientation: Person, Place, Situation Attachments: IV ROM/Strength ROM Lower Extremities WNL Strength Lower Extremities grossly 4+/5 BLE Sensory Vision: Functional Hearing: Functional Sensation Right Lower Extremit: Intact Sensation Left Lower Extremity: Intact Transfers Roll Left to Right (QC): 3 Lying to Sitting/Side of Bed(Q: 3 Sit to Stand (QC): 4 Chair/Jtb-qt-[place] Xfer(QC): 4 Toilet Transfer (QC): 4 Min assist for supine to sit, CGA for sit to stand. Patient needs to use the restroom, ambulates into it with CGA, toilets herself and ambulates back to the recliner. Gait Does the Patient Walk?: Yes Mode of Locomotion: Walk Anticipated Mode of Locomotion: Walk Walk 10 feet (QC): 4 Distance: 10'x2 Gait Assistive Device: FWW Comments/Gait Description slow but steady ambulation, CGA Balance Sitting Static: Normal Sitting Dynamic: Normal Standing Static: Good Standing Dynamic: Good Treatment BLE seated exercise x20 (AP, LAQ) Assessment/Needs Patient in recliner post tx with nurse call, phone, tray, all needs met. Patient has impaired mobility, needs min assist for supine to sit but just CGA for sit to stand and transfers. 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 PT [facility] Goals Time Frame: Jul 10, 2022 Roll Left & Right (QC): 6 Sit to Lying (QC): 6 Lying-Sitting on Side/Bed(QC): 6 Sit to Stand (QC): 6 Chair/Nmd-ud-Sxldh Xfer(QC): 6 Walk 10 feet (QC): 6 Walk 50ft with 2 Turns (QC): 6 Walk 150 ft (QC): 6 PT Plan Problem List Problem List: Activity Tolerance, Functional Strength, Safety, Balance, Gait, Transfer, Bed Mobility, ROM Treatment/Plan Treatment Plan: Continue Plan of Care Treatment Plan: Bed Mobility, Education, Functional Activity Bree, Functional Strength, Gait, Safety, Therapeutic Exercise, Transfers Treatment Duration: Jul 10, 2022 Frequency: 6 times per week Estimated Hrs Per Day: .25 hour per day Patient and/or Family Agrees t: Yes Safety Risks/Education Patient Education: Gait Training, Transfer Techniques, Correct Positioning, Safety Issues Teaching Recipient: Patient Teaching Methods: Demonstration, Discussion Response to Teaching: Reinforcement Needed Discharge Recommendations Plan Patient will perform bed mobility and transfer training, balance and endurance training, functional strengthening, stair training, gait training, and education, to improve functional mobility and independence at home. Therapy Discharge Recommendati: Home & Family, Post Acute PT Time Time In: 1448 Time Out: 1502 DATE: Jul 03, 2022 Total Billed Treatment Time: 14 Total Billed Treatment 1 visit EVKeiko 14' FADIA FLORES PT Jul 03, 2022 15:30
[2022-07-03] MEDS: ceFAZolin INJECTION 2,000 MG in NS (IVPB) 50 ML IV SCH (17:05)
[2022-07-03] MEDS ORDERED: APAP 325 MG/10.15 ML LIQ (TYLENOL) UDC ONE (20:42)
[2022-07-03] MEDS ORDERED: APAP 325 MG/10.15 ML LIQ (TYLENOL) UDC PO PRN ×2 (20:45→21:45)
[2022-07-04 00:09] VITALS: BP 162/90
[2022-07-04] MEDS: ceFAZolin INJECTION 2,000 MG in NS (IVPB) 50 ML IV SCH (00:12)
[2022-07-04] MEDS: ENOXAPARIN 60 MG/0.6 ML (LOVENOX) SYR SC SCH ×2 (01:30→15:17)
[2022-07-04 04:57] VITALS: BP 142/73
[2022-07-04 06:56] LABS: BASOPHILS % (AUTO) 0 % (0-10); EOSINOPHILS % (AUTO) 0 % (0-10); HEMATOCRIT 38 % (35-52); HEMOGLOBIN 12.1 g/dL (11.5-16.0); LYMPHOCYTES # (AUTO) 0.9 10^3/uL (1.0-4.0); LYMPHOCYTES % (AUTO) 14 % (12-44); MEAN CORPUSCULAR HEMOGLOBIN 31 pg (25-34); MEAN CORPUSCULAR HGB CONC 32 g/dL (32-36); MEAN CORPUSCULAR VOLUME 95 fL (80-99); MEAN PLATELET VOLUME 11.2 fL (9.0-12.2); MONOCYTES # (AUTO) 0.4 10^3/uL (0.0-1.0); MONOCYTES % (AUTO) 5 % (0-12); NEUTROPHILS # (AUTO) 5.3 10^3/uL (1.8-7.8); NEUTROPHILS % (AUTO) 80 % (42-75); PLATELET COUNT 281 10^3/uL (130-400); WHITE BLOOD COUNT 6.6 10^3/uL (4.3-11.0)
[2022-07-04 07:07] LABS: PROTHROMBIN TIME PATIENT 13.1 SEC (12.2-14.7)
--- NOTE | 2022-07-04 07:24 | Progress Note - Surgery ---
EMILYERINCARRIE Swan 07/04/22 0724: Subjective Date Seen by a Provider: Jul 04, 2022 Time Seen by a Provider: 06:45 Subjective/Events-last exam Pt is laying comfortably in bed. Pt states that she feels good this morning and rates her abd pain a 2/10 and characterizes it as sore and dull. Pt states that she hasn't had a BM but has experienced small amounts of flatus. Pt has been tolerating clears well, denies gagging, nausea, regurgitation, or vomiting. Pt notes minimal belching. Pt has been seen by PT and has been ambulating to chair without issue. In room, pt experienced some lightheadedness upon sitting then subsequent R shoulder pain that radiated into her chest. Pt rated the pain a 2/10 and it self resolved within minutes. Pt notes that it was similar to the gas pain she experienced following surgery. Pt denies SOB, RODRIGUEZ, chills, or hematuria. Review of Systems General: No Chills, No Night Sweats HEENT: No Head Aches, No Eye Pain Pulmonary: No Dyspnea; Cough (had before hospital stay-improving) Cardiovascular: Chest Pain (in room, resolved within minutes), Lt Headedness (in room, resolved within minutes) Gastrointestinal: Abdominal Pain (surgical ); No: Nausea, Vomiting Genitourinary: No Dysuria, No Hematuria Musculoskeletal: shoulder pain (R, resolved) Neurological: No: Weakness, Numbness Objective Exam Vital Signs Date Time Temp Pulse Resp B/P (MAP) Pulse Ox O2 Delivery O2 Flow Rate FiO2 07/04/22 04:57 37.2 78 18 142/73 (96) 94 Room Air 07/04/22 00:09 37.0 78 18 162/90 (114) 95 Room Air 07/03/22 21:17 36.2 07/03/22 20:47 36.2 07/03/22 20:05 36.2 68 16 142/84 (103) 98 Room Air 07/03/22 20:00 Room Air 07/03/22 19:39 Room Air 07/03/22 18:38 Room Air 07/03/22 16:19 36.2 62 16 157/79 (105) 98 Room Air 07/03/22 14:00 35.9 07/03/22 13:45 35.9 60 95 07/03/22 13:30 35.9 07/03/22 12:55 35.9 60 18 173/90 (117) 95 Room Air 07/03/22 12:30 Room Air 07/03/22 12:20 36.2 21 134/78 (96) 100 Room Air 07/03/22 12:10 19 134/79 (97) 100 OxyMask 10.00 07/03/22 12:10 OxyMask 10.00 07/03/22 12:00 18 136/79 (98) 100 OxyMask 10.00 07/03/22 11:55 OxyMask 10.00 07/03/22 11:50 21 146/84 (104) 100 OxyMask 10.00 07/03/22 11:40 18 131/68 (89) 100 OxyMask 10.00 07/03/22 11:37 OxyMask 10.00 07/03/22 11:37 36.1 16 140/87 (104) 100 OxyMask 10.00 07/03/22 08:38 36.1 68 22 155/92 (113) 98 Room Air I & O0 07/04/22 06:59 Intake Total 3840 ml Output Total 1800 ml Balance 2040 ml Capillary Refill : General Appearance: No Apparent Distress, Obese HEENT: PERRL/EOMI Respiratory: Lungs Clear, Normal Breath Sounds, No Accessory Muscle Use, No Respiratory Distress Cardiovascular: Regular Rate, Rhythm, No Murmur Peripheral Pulses: 2+ Dorsalis Pedis (R), 2+ Left Dors-Pedis (L) Gastrointestinal: normal bowel sounds, soft, tenderness (mild tenderness over epigastrium and surgical incisions) Extremity: No Pedal Edema, Calf Tenderness (chronic d/t psoriatic arthritis in knees, not worse than normal) Neurologic/Psychiatric: Alert, Oriented x3 Skin: Normal Color, Warm/Dry, Other (surgical incisions across mid abd) Results Lab Laboratory Tests 07/04/22 05:31: White Blood Count 6.6, Red Blood Count 3.97, Hemoglobin 12.1, Hematocrit 38, Mean Corpuscular Volume 95, Mean Corpuscular Hemoglobin 31, Mean Corpuscular Hemoglobin Concent 32, Red Cell Distribution Width 13.5, Platelet Count 281, Mean Platelet Volume 11.2, Immature Granulocyte % (Auto) 0, Neutrophils (%) (Auto) 80H, Lymphocytes (%) (Auto) 14, Monocytes (%) (Auto) 5, Eosinophils (%) (Auto) 0, Basophils (%) (Auto) 0, Neutrophils # (Auto) 5.3, Lymphocytes # (Auto) 0.9L, Monocytes # (Auto) 0.4, Eosinophils # (Auto) 0.0, Basophils # (Auto) 0.0, Immature Granulocyte # (Auto) 0.0, Prothrombin Time 13.1, INR Comment 1.0 Assessment/Plan Assessment/Plan Assessment/Plan 1. POD#1 Robotic/Laparoscopic Hiatal hernia Repair with anti-reflux wrap 2. h/o dysphagia and GERD 3. HTN Pt seems to be doing well, pain is well controlled. Is tolerating clears well with no gagging or vomiting, and ambulating without issue. Pt did experience some lightheadedness with sitting, likely orthostatic. Shoulder pain and CP most likely due to gas from surgery, will continue to monitor. Continue IV abx, pain medication prn, anti-emetics prn. Keep on clears, encourage ambulation, IS use. DAVE RUSSELL DO 07/04/22 1244: Subjective Time Seen by a Provider: 11:51 Subjective/Events-last exam Pt seen and examined, states pain is controlled and she is tolerating clears. Only complains of being tired. Review of Systems General: No Chills, No Night Sweats Pulmonary: No Dyspnea; Cough (had before hospital stay-improving) Cardiovascular: Chest Pain (in room, resolved within minutes), Lt Headedness (in room, resolved within minutes) Gastrointestinal: Abdominal Pain (surgical ); No: Nausea, Vomiting Objective Exam General Appearance: No Apparent Distress, Obese HEENT: PERRL/EOMI Respiratory: Lungs Clear, Normal Breath Sounds, No Accessory Muscle Use, No Respiratory Distress Cardiovascular: Regular Rate, Rhythm, No Murmur Gastrointestinal: normal bowel sounds, soft, tenderness (mild tenderness over epigastrium and surgical incisions) Assessment/Plan Assessment/Plan Assessment/Plan 1. POD#1 Robotic/Laparoscopic Hiatal hernia Repair with anti-reflux wrap 2. h/o dysphagia and GERD 3. HTN Pt seems to be doing well, pain is well controlled. Is tolerating clears well with no gagging or vomiting, and ambulating without issue. Pt did experience some lightheadedness with sitting, likely orthostatic. Shoulder pain and CP most likely due to gas from surgery, will continue to monitor. Continue IV abx, pain medication prn, anti-emetics prn. Pt must stay on liquid diet for 4 weeks, encourage ambulation, IS use. Will D/C pt home. Supervisory-Addendum Brief Verification & Attestation Participated in pt care: history, MDM, physical Personally performed: exam, history, MDM, supervision of care Care discussed with: Medical Student Procedures: n/a Verification and Attestation of Medical Student E/M Service A medical student performed and documented this service. I then reviewed and verified all information documented by the medical student and made modifications to such information, when appropriate. I personally performed a physical exam, medical decision making and then discussed any differences between the notes and made revisions as necessary to create one note. Dave Russell , 07/04/22 , 12:44 CARRIE CARL Jul 04, 2022 07:24 DAVE RUSSELL DO Jul 04, 2022 12:44
[2022-07-04 07:34] VITALS: BP 156/75
[2022-07-04 07:37] LABS: ALBUMIN 3.8 GM/DL (3.2-4.5); BILIRUBIN,TOTAL 0.4 MG/DL (0.1-1.0); CALCIUM 9.4 MG/DL (8.5-10.1); CREATININE SERUM 0.71 MG/DL (0.60-1.30); POTASSIUM 3.6 MMOL/L (3.6-5.0); TOTAL PROTEIN 6.5 GM/DL (6.4-8.2)
[2022-07-04] MEDS ORDERED: PANTOPRAZOLE 40 MG (PROTONIX) VIAL IVP SCH (09:00)
--- NOTE | 2022-07-04 09:56 | Physical Therapy Daily Note ---
PT Daily Note-Current Subjective Patient agrees to PT. She reports she may go home today or tomorrow. Pain Section J - Health Conditions 1. Rarely or not at all 2. Occasionally 3. Frequently 4. Almost constantly 8. Unable to answer Pain Effect on Sleep: 2 Pain Interference with Therapy: 1 Pain Interference w/Day-to-Day: 1 Mental Status Patient Orientation: Normal For Age Transfers SCALE: Activities may be completed with or without assistive devices. 9-Zfczbykhvw-mzniyjv completes the activity by him/herself with no assistance from a helper. 5-Set-up or Clean-up Assistance-helper sets up or cleans up; patient completes activity. [place] assists only prior to or following the activity. 4-Supervision or Touching Assistance-helper provides verbal cues and/or touching/steadying and/or contact guard assistance as patient completes activity. Assistance may be provided throughout the activity or intermittently. 3-Partial/Moderate Assistance-helper does LESS THAN HALF the effort. [place] lifts, holds or supports trunk or limbs, but provides less than half the effort. 2-Substantial/Maximal Assistance-helper does MORE THAN HALF the effort. [place] lifts or holds trunk or limbs and provides more than half the effort. 6-Dwcxbqlci-knjxbp does ALL the effort. Patient does none of the effort to complete the activity. Or, the assistance of 2 or more helpers is required for the patient to complete the activity. If activity was not attempted, code reason: 7-Patient Refused. 9-Not Applicable-not attempted and the patient did not perform the activity before the current illness, exacerbation or injury. 10-Not Attempted due to Environmental Limitations-(lack of equipment, weather restraints, etc.). 88-Not Attempted due to Medical Conditions or Safety Concerns. Lying to Sitting/Side of Bed(Q: 6 Sit to Stand (QC): 6 Chair/Hvj-md-Gtunp Xfer(QC): 6 Gait Training Distance: 250' Walk 10 feet (QC): 5 Walk 50 ft with 2 Turns(QC): 5 Walk 150 ft (QC): 5 Gait Assistive Device: FWW slow, steady, functional gait sequence Assessment Patient and nursing instructed to ambulate PRN in hallway. Both voice understanding. PT will see patient for one more session before dismissal from services. 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 PT Senior Living Goals Time Frame: Jul 10, 2022 Roll Left & Right (QC): 6 Sit to Lying (QC): 6 Lying-Sitting on Side/Bed(QC): 6 Sit to Stand (QC): 6 Chair/Dyb-fr-Dhegg Xfer(QC): 6 Walk 10 feet (QC): 6 Walk 50ft with 2 Turns (QC): 6 Walk 150 ft (QC): 6 PT Plan Treatment/Plan Treatment Plan: Continue Plan of Care Treatment Plan: Bed Mobility, Education, Functional Activity Bree, Functional Strength, Gait, Safety, Therapeutic Exercise, Transfers Treatment Duration: Jul 10, 2022 Frequency: 6 times per week Estimated Hrs Per Day: .25 hour per day Patient and/or Family Agrees t: Yes Time Time In: 850 Time Out: 902 DATE: Jul 04, 2022 Total Billed Treatment Time: 12 Total Billed Treatment 1 visit FA 12 min PREMA JOE PT Jul 04, 2022 09:56
[2022-07-04 11:18] VITALS: BP 127/61
[2022-07-04] MEDS ORDERED: AC160U10 PO (12:41)
--- NOTE | 2022-07-04 12:41 | Discharge Inst-Surgical ---
Discharge Inst-Surgical Depart Medication/Instructions New, Converted or Re-Newed RX: Transmitted to Pharmacy Patient Instructions Follow up Appt: Make appointment for 1 week. [phone] Instructions: No lifting greater than 20 pounds. No strenuous activity. May shower in 24 hours, no tub bath or soaking. Use incentive spirometer at home as directed. No Smoking Skin/Wound Care: May remove bandages in am. You need to leave the Dermabond on incision it will fall off on it's own. Symptoms to Report: Appetite Changes, Extremity Discoloration, Numbness/Tingling, Swelling Increased, Bleeding Excessive, Eyesight Changes, Pain Increased, Urine Color Change, Constipation(Persistent), Fever over 101 degree F, Pain/Pressure in chest, Urinating Difficulty, Cough Up/Vomit Blood, Heart Beat Irreg/Pounding, Pain/Pressure in jaw, Cramps in feet or legs, Lightheadedness, Pain/Pressure in shoulder, Diarrhea(Persistent), Memory Changes Suddenly, Questions/Concerns, Weight gain consecutive days, Dizziness/Fainting, Nausea/Vomiting, Shortness of Breath, Weight gain over 2 pounds If questions or concerns contact your physician Or seek help at emergency department. Activity Activity as Tolerated: Yes Activity Instructions: Avoid Stress to Incision Driving Instructions: No Driving/Refer to Dr. Diego Discharge Diet: Liquid Diet (for 4 weeks) If Any Problems/Questions/Issu: Contact Your Physician, Go to Emergency Room Skin/Wound Care Infection Signs and Symptoms: Increased Redness, Foul Odor of Wound, Increased Drainage, Skin Itchy or Has a Rash, Increased Swelling, Temperature Above 101 F Bathing Instructions: Shower Stitches/Nat/Dermabond Dis: DAVE Andersen DO Jul 04, 2022 12:41
[2022-07-04 15:35] VITALS: BP 157/90
[2022-07-04 16:08] VITALS: BP 157/90
== END 2022-07-04 16:10 | disposition home or self-care (01) ==
LOC: SDC 08:05 → 4TH 12:45 → SDC 07-04 16:10
PROVIDERS: ATTEND Surgery
DX: K44.9 Diaphragmatic hernia without obstruction or gangrene (principal); K21.00 Gastro-esophageal reflux disease with esophagitis, without bleeding; E66.01 Morbid (severe) obesity due to excess calories; Z68.43 Body mass index [BMI] 50.0-59.9, adult; Z87.891 Personal history of nicotine dependence
CPT/HCPCS: 36415; 80053; 84703; 85025; 85610; 87081; 94664